=== PATIENT | female | born 1985 | race Two or more races ===

== ENCOUNTER 2019-11-25 09:11 | Emergency (ER) | payer SELFPAY ==
[2019-11-25] MEDS ORDERED: PROMETHAZINE HCL 25 MG TABLET PO ONE (09:34)
[2019-11-25] MEDS ORDERED: ACETAMINOPHEN 325 MG TABLET PO ONE (09:34)
--- NOTE | 2019-11-25 09:34 | ER Document Report ---
ED Medical Screen (RME) - General Chief Complaint: Headache Stated Complaint: RIGHT SIDE FACIAL PAIN,HEAD PAIN Time Seen by Provider: 11/25/19 09:23 Notes: Patient is a 34-year-old female who presents to the emergency department with a chief complaint of right-sided headache. Patient reports that she has trigeminal neuralgia and is currently taking nortriptyline, Lyrica, gabapentin. Patient reports that she does have a neurologist in [place] and just recently moved here. Patient reports she is having breakthrough pain. Patient reports right-sided headache. Patient reports she has having some photosensitivity with nausea. Patient reports she cannot take Compazine or Reglan as this does not work well with her brain. Patient reports she does have chronic pancreatitis and cannot take NSAIDs. Patient requesting Zofran or Phenergan. TRAVEL OUTSIDE OF THE U.S. IN LAST 30 DAYS: No - Related Data Allergies/Adverse Reactions: ketorolac [From Toradol] Allergy (Verified 11/25/19 09:16) NSAIDS (Non-Steroidal Anti-Inflamma Adverse Reaction (Verified 11/25/19 09:16) Home Medications: Lyrica and gabapentin Past Medical History - Social History Frequency of alcohol use: None Drug Abuse: None Physical Exam - Vital signs Vitals: Temp Pulse Resp BP Pulse Ox 97.8 F 113 H 18 152/101 H 100 11/25/19 09:15 11/25/19 09:15 11/25/19 09:15 11/25/19 09:15 11/25/19 09:15 - Respiratory Respiratory status: No respiratory distress Course - Re-evaluation Re-evalutation: 11/25/19 09:34 I have greeted and performed a rapid initial assessment of this patient. A comprehensive ED assessment and evaluation of the patient, analysis of test results and completion of the medical decision making process will be conducted by additional ED providers. We will give the patient antinausea medication as well as Tylenol. Patient ultimately needs to follow-up with a neurologist. - Vital Signs Vital signs: Temp Pulse Resp BP Pulse Ox 97.8 F 113 H 18 152/101 H 100 11/25/19 09:15 11/25/19 09:15 11/25/19 09:15 11/25/19 09:15 11/25/19 09:15
[2019-11-25] MEDS ORDERED: ONDANSETRON 4 MG TAB.RAPDIS PO ONE (10:06)
[2019-11-25] MEDS ORDERED: OXYCODONE-ACETAMINOPHEN 5-325 MG TABLET PO ONE (10:06)
--- NOTE | 2019-11-25 10:31 | ER Document Report ---
ED Headache - General Chief Complaint: Headache Stated Complaint: RIGHT SIDE FACIAL PAIN,HEAD PAIN Time Seen by Provider: 11/25/19 09:23 Mode of Arrival: Ambulatory Information source: Patient Notes: 34-year-old female with history of trigeminal neuralgia who is been following in [place] now lives in [place] but has not yet established with neurology presenting for worsening right facial pain consistent with her prior trigeminal neuralgia diagnosis. Patient states she is on multiple medications for this but they do not seem to be working as well over the last several weeks. She has not called her neurologist in [place] to discuss medication management. Patient presenting for pain management at this time TRAVEL OUTSIDE OF THE U.S. IN LAST 30 DAYS: No - HPI Patient complains to provider of: Facial pain - Trigeminal neuralgia history Onset: Other - Every day Onset was: Other - Chronic Quality of pain: Burning Severity: Moderate Pain Level: 4 Similar symptoms previously: Yes - Miya Recently seen / treated by doctor: Yes - Lynne, neurology in [place] - Related Data Allergies/Adverse Reactions: ketorolac [From Toradol] Allergy (Verified 11/25/19 09:16) NSAIDS (Non-Steroidal Anti-Inflamma Adverse Reaction (Verified 11/25/19 09:16) Home Medications: Lyrica and gabapentin Past Medical History - Social History Smoking Status: Current Every Day Smoker Cigarette use (# per day): Yes Chew tobacco use (# tins/day): No Smoking Education Provided: No Frequency of alcohol use: None Drug Abuse: None Family History: Reviewed & Not Pertinent Patient has suicidal ideation: No Patient has homicidal ideation: No - Medical History Medical History: Other - Trigeminal neuralgia Surgical Hx: Negative - Immunizations Immunizations up to date: Yes Review of Systems - Review of Systems Constitutional: See HPI EENT: Other - Right facial pain Cardiovascular: No symptoms reported Respiratory: No symptoms reported Gastrointestinal: No symptoms reported Female Genitourinary: No symptoms reported Musculoskeletal: No symptoms reported Skin: No symptoms reported Hematologic/Lymphatic: No symptoms reported Neurological/Psychological: No symptoms reported -: Yes All other systems reviewed and negative Physical Exam - Vital signs Vitals: Temp Pulse Resp BP Pulse Ox 97.8 F 113 H 18 152/101 H 100 11/25/19 09:15 11/25/19 09:15 11/25/19 09:15 11/25/19 09:15 11/25/19 09:15 - Notes Notes: MEDICATIONS: I agree with the patient medications as charted by the RN. ALLERGIES: I agree with the allergies as charted by the RN. PAST MEDICAL HISTORY/PAST SURGICAL HISTORY: Reviewed and agree as charted by RN. SOCIAL HISTORY: Reviewed and agree as charted by RN. FAMILY HISTORY: No significant familial comorbid conditions directly related to patient complaint EXAM: Reviewed vital signs as charted by RN. CONSTITUTIONAL: Alert and oriented and responds appropriately to questions. Well-appearing; well-nourished HEAD: Normocephalic; atraumatic EYES: PERRL; Conjunctivae clear, sclerae non-icteric ENT: normal nose; no rhinorrhea; moist mucous membranes. There is tenderness on palpation of the right forehead, cheek and mandible without visible rash NECK: Supple without meningismus; non-tender; no cervical lymphadenopathy, no masses CARD: RRR; no murmurs, no clicks, no rubs, no gallops; symmetric distal pulses RESP: Normal chest excursion without splinting or tachypnea; breath sounds clear and equal bilaterally; no wheezes, no rhonchi, no rales, ABD/GI: Normal bowel sounds; non-distended; soft, non-tender, no rebound, no guarding; no palpable organomegaly or masses. BACK: The back appears normal and is non-tender to palpation, there is no CVA tenderness EXT: Normal ROM in all joints; no cyanosis, no effusions, no edema SKIN: Normal color for age and race; warm; dry; good turgor; no acute lesions noted NEURO: Moves all extremities equally; Motor and sensory function intact PSYCH: The patient's mood and manner are appropriate. Grooming and personal hygiene are appropriate. Course - Re-evaluation Re-evalutation: 11/25/19 10:33 34-year-old female with chronic facial pain on multiple medications. She was reviewed on the [place] narcotics database without finding significant entries for narcotics. Patient is aware that we do not treat chronic pain issues through the emergency department. She will call her neurologist today to discuss further medication changes with her current medication regimen. I will refer the patient to neurology here. I will write the patient a very short course of pain medication today she does not have significant history here of narcotic use but she is aware that she will not receive repeat narcotic pain medications - Vital Signs Vital signs: Temp Pulse Resp BP Pulse Ox 97.8 F 113 H 18 152/101 H 100 11/25/19 09:15 11/25/19 09:15 11/25/19 09:15 11/25/19 09:15 11/25/19 09:15 Discharge - Discharge Clinical Impression: Facial pain syndrome Condition: Good Disposition: HOME, SELF-CARE Additional Instructions: Take the medications as prescribed no driving if taking narcotics for pain. It is important that you obtain primary care or neurology follow-up for further pain management issues as discussed. Call your neurologist in [place] to discuss medication changes with your current regimen. You have been given a referral to neurology for follow-up Prescriptions: Ondansetron [Zofran Odt 4 mg Tablet] 4 mg PO Q4HP PRN #14 tab.rapdis PRN Reason: Oxycodone HCl/Acetaminophen [Percocet 5-325 mg Tablet] 1 tab PO ASDIR PRN #10 tab PRN Reason: Neuropathic Pain Referrals: BEL CARRANZA MD [[facility]] - Follow up as needed
[2019-11-25 10:47] VITALS: BP 140/74
== END 2019-11-25 10:47 | disposition home or self-care (01) ==
LOC: ER 09:11
DX: G50.0 Trigeminal neuralgia (principal); Z79.899 Other long term (current) drug therapy; F17.210 Nicotine dependence, cigarettes, uncomplicated; Z88.8 Allergy status to other drugs, medicaments and biological substances
CPT/HCPCS: 99283; S0119

== ENCOUNTER 2020-01-29 12:12 | Emergency (ER) | payer SELFPAY ==
[2020-01-29] MEDS ORDERED: ONDANSETRON 4 MG TAB.RAPDIS PO ONE (13:51)
[2020-01-29] MEDS ORDERED: ACETAMINOPHEN 325 MG TABLET PO ONE (13:51)
--- NOTE | 2020-01-29 13:51 | ER Document Report ---
ED Medical Screen (RME) - General Chief Complaint: Headache Stated Complaint: HEAD PAIN Time Seen by Provider: 01/29/20 13:44 Mode of Arrival: Ambulatory Information source: Patient Notes: 34-year-old female presents to ED for complaint of a headache x3 days with nausea. She states she took Tylenol at 630. She states she has headaches but never one the last 3 days. She is 16 weeks 4 para 2. She does live in [place] and her [employer] is in [place]. She does have a history of previous pregnancies gestational diabetes gestational hypertension with preeclampsia anxiety and depression. She does not smoke she rarely drinks has not drank in a car least couple months and does not use any drugs. I have greeted and performed a rapid initial assessment of this patient. A comprehensive ED assessment and evaluation of the patient, analysis of test results and completion of medical decision making process will be conducted by an additional ED providers. TRAVEL OUTSIDE OF THE U.S. IN LAST 30 DAYS: No - Related Data Allergies/Adverse Reactions: ketorolac [From Toradol] Allergy (Verified 01/29/20 13:11) NSAIDS (Non-Steroidal Anti-Inflamma Adverse Reaction (Verified 01/29/20 13:11) Past Medical History - Immunizations Immunizations up to date: Yes Physical Exam - Vital signs Vitals: Temp Pulse Resp BP Pulse Ox 98.8 F 87 20 148/86 H 100 01/29/20 12:57 01/29/20 12:57 01/29/20 12:57 01/29/20 12:57 01/29/20 12:57 Course - Vital Signs Vital signs: Temp Pulse Resp BP Pulse Ox 98.8 F 87 20 148/86 H 100 01/29/20 12:57 01/29/20 12:57 01/29/20 12:57 01/29/20 12:57 01/29/20 12:57
--- NOTE | 2020-01-29 14:08 | ER Document Report ---
ED Medical Screen (RME) - General Chief Complaint: Headache Stated Complaint: HEAD PAIN Time Seen by Provider: 01/29/20 13:44 Mode of Arrival: Ambulatory Information source: Patient Notes: 34-year-old female presented to ED for complaint of headache. She has a history of trigeminal neuralgia she was diagnosed in [place] in December 2018. She states she smokes 1/2 pack of cigarettes does not use alcohol or drugs. She also has a story of pancreatitis. She states she has been nauseated for about the last 3 to 4 days and she thinks is because of the pain in her head. She states she has not seen any doctors since March or April when she moved from [place] to [place]. I have greeted and performed a rapid initial assessment of this patient. A comprehensive ED assessment and evaluation of the patient, analysis of test results and completion of medical decision making process will be conducted by an additional ED providers. TRAVEL OUTSIDE OF THE [place] IN LAST 30 DAYS: No - Related Data Allergies/Adverse Reactions: ketorolac [From Toradol] Allergy (Verified 01/29/20 13:11) NSAIDS (Non-Steroidal Anti-Inflamma Adverse Reaction (Verified 01/29/20 13:11) Past Medical History - Immunizations Immunizations up to date: Yes Physical Exam - Vital signs Vitals: Temp Pulse Resp BP Pulse Ox 98.8 F 87 20 148/86 H 100 01/29/20 12:57 01/29/20 12:57 01/29/20 12:57 01/29/20 12:57 01/29/20 12:57 Course - Vital Signs Vital signs: Temp Pulse Resp BP Pulse Ox 98.8 F 87 20 148/86 H 100 01/29/20 12:57 01/29/20 12:57 01/29/20 12:57 01/29/20 12:57 01/29/20 12:57
[2020-01-29 14:45] LABS: ABSOLUTE EOSINOPHILS # (AUTO) 0.6 10^3/uL (0.0-0.6); ABSOLUTE LYMPHOCYTES (AUTO) 1.5 10^3/uL (0.5-4.7); ABSOLUTE MONOCYTES (AUTO) 0.4 10^3/uL (0.1-1.4); ABSOLUTE NEUT (AUTO) 6.3 10^3/uL (1.7-8.2); BASOPHILS % (AUTO) 0.5 % (0-2); EOSINOPHILS % (AUTO) 6.3 % (0-6); HEMATOCRIT 34.1 % (36.0-47.0); HEMOGLOBIN 11.2 g/dL (12.0-15.5); LYMPHOCYTES % (AUTO) 17.1 % (13-45); MEAN CORPUSCULAR HEMOGLOBIN 24.1 pg (27.0-33.4); MEAN CORPUSCULAR HGB CONC 32.8 g/dL (32.0-36.0); MEAN CORPUSCULAR VOLUME 73 fl (80-97); MONOCYTES % (AUTO) 4.5 % (3-13); PLATELET COUNT 200 10^3/uL (150-450); RED BLOOD COUNT 4.65 10^6/uL (3.72-5.28); SEGMENTED NEUTROPHILS % (AUTO) 71.6 % (42-78); TOTAL CELLS COUNTED % (AUTO) 100 %; WHITE BLOOD COUNT 8.8 10^3/uL (4.0-10.5)
[2020-01-29 14:48] LABS: APPEARANCE,URINE CLEAR; BILIRUBIN,URINE NEGATIVE (NEGATIVE); COLOR,URINE STRAW; GLUCOSE, URINE NEGATIVE (NEGATIVE); KETONES,URINE NEGATIVE (NEGATIVE); PROTEIN,URINE NEGATIVE (NEGATIVE); URINE SPECIFIC GRAVITY 1.003; UROBILINOGEN,URINE NEGATIVE mg/dL (<2.0)
[2020-01-29 14:53] LABS: BACTERIA,URINE TRACE /HPF; RBC,URINE 0-1 /HPF
[2020-01-29 15:22] LABS: ALBUMIN 4.7 g/dL (3.5-5.0); ALKALINE PHOSPHATASE 63 U/L (38-126); ANION GAP 10 (5-19); ASPARTATE AMINO TRANSFERASE 19 U/L (14-36); BILIRUBIN,TOTAL 0.4 mg/dL (0.2-1.3); BLOOD UREA NITROGEN < 2 mg/dL (7-20); CALCIUM 9.4 mg/dL (8.4-10.2); CARBON DIOXIDE 27 mmol/L (22-30); CHLORIDE 106 mmol/L (98-107); GLUCOSE 85 mg/dL (75-110); POTASSIUM 3.5 mmol/L (3.6-5.0); TOTAL PROTEIN 7.6 g/dL (6.3-8.2)
[2020-01-29] MEDS ORDERED: DIPHENHYDRAMINE HCL 50 MG/ML VIAL IV ONE (15:46)
[2020-01-29] MEDS ORDERED: DEXAMETHASONE SOD PHOS INJ 10 MG/1 ML VIAL IV ONE (15:46)
[2020-01-29] MEDS ORDERED: MORPHINE SULFATE 10 MG/ML INJ IV ONE ×2 (15:46→17:05)
--- NOTE | 2020-01-29 15:51 | ER Document Report ---
HPI - HPI Time Seen by Provider: 01/29/20 13:44 Pain Level: 4 Notes: Patient is a 34-year-old female with history of right-sided trigeminal neuralgia and currently on Lyrica and gabapentin at home by her neurologist from [place] presents complaining of having continued pain and requesting some medicines to help. This is not the worst headache of her life and did not start as a thunderclap. She has this pain routinely. Patient states that she tries not to come here for this type of pain. She recently moved to the area and is working on getting Medicaid. She is able to eat and drink without difficulty. She does have chronic pancreatitis issues as well. She is urinating normally and having normal bowel movements. Patient states that she cannot have any anti- inflammatories and she cannot have any Reglan, Phenergan, or Compazine as it makes her suicidal. Denies any headache, fever, neck pain, changes in vision/speech/mentation/hearing, URI, sore throat, chest pain, palpitations, syncope, cough, shortness of breath, wheeze, dyspnea, abdominal pain, nausea/vomiting/diarrhea, urinary retention, dysuria, hematuria, or rash. - ROS Systems Reviewed and Negative: Yes All other systems reviewed and negative - REPRODUCTIVE LMP: unk, after 01/03/ Reproductive: DENIES: : Past Medical History - General Information source: Patient - Social History Smoking Status: Current Every Day Smoker Chew tobacco use (# tins/day): No Frequency of alcohol use: None Drug Abuse: None Family History: Reviewed & Not Pertinent Patient has suicidal ideation: No Patient has homicidal ideation: No - Immunizations Immunizations up to date: Yes Vertical Provider Document - CONSTITUTIONAL Agree With Documented VS: Yes Notes: PHYSICAL EXAMINATION: GENERAL: Well-appearing, well-nourished and in no acute distress. A&Ox4. Answers questions appropriately. HEAD: Atraumatic, normocephalic. Non-tender. EYES: Pupils equal round and reactive to light, extraocular movements intact, sclera anicteric, conjunctiva are normal. No nystagmus. vis martinez intact. ENT: Nares patent and without discharge. oropharynx clear without exudates. No tonsilar hypertrophy or erythema. Moist mucous membranes. Face: + sensitivity rt side of face. No swelling. NECK: Normal range of motion, supple without lymphadenopathy. No rigidity/meningismus. No midline tenderness. LUNGS: Breath sounds clear to auscultation bilaterally and equal. No wheezes rales or rhonchi. HEART: Regular rate and rhythm without murmurs, rubs, gallops. ABDOMEN: Soft, nontender, nondistended abdomen. No guarding, no rebound. Normal bowel sounds present. No CVA tenderness bilaterally. Musculoskeletal: Ext b/l: FROM to passive/active. Strength 5+/5. No deficits noted. No bony tenderness of extremities. Extremities: No cyanosis, clubbing, or edema b/l. Peripheral pulses 2+. Capil kj refill less than 2 seconds. NEUROLOGICAL: NIH 0. GCS 15. Cranial nerves grossly intact. Normal speech, normal gait. Normal sensory, motor exams. PSYCH: Normal mood, normal affect. SKIN: Warm, Dry, normal turgor, no rashes or lesions noted. - INFECTION CONTROL TRAVEL OUTSIDE OF THE [place] IN LAST 30 DAYS: No Course - Re-evaluation Re-evalutation: 01/29/20 Patient is an afebrile, well-hydrated, 34-year-old female who presents to the ED with acute/chronic trigeminal neuralgia pain. Vitals are acceptable without any significant tachycardia, tachypnea, or hypoxia. PE is otherwise unremarkable for any focal neurological deficits. NIH 0, GCS 15, cranial nerves grossly intact. Patient has had headaches like this in the past recently. Labs unremarkable. Patient is very particular with what medicine she was given. I thoroughly reviewed with the patient that the ED does not treat chronic pain and that I personally would help her once this time, but not to expect any further narcotics for me in the future as she needs to establish with a neurologist and/or pain management. Patient does have a ride home. She is nontoxic- appearing and is tolerating p.o. without any difficulties. No further work-up warranted. Low suspicion for any acute glaucoma, temporal arteritis, meningitis, intracranial hemorrhage, ischemic stroke, or fracture at this time. Patient is aware that this condition can change from initial presentation and that she needs to monitor symptoms closely for any acute changes. Recheck with your PCM/neurologist/pain management in 3-5 days. Return to the ED with any worsening/concerning symptoms otherwise as reviewed in discharge. Patient is in agreement. - Vital Signs Vital signs: Temp Pulse Resp BP Pulse Ox 98.8 F 87 20 148/86 H 100 01/29/20 12:57 01/29/20 12:57 01/29/20 12:57 01/29/20 12:57 01/29/20 12:57 - Laboratory Result Diagrams: 01/29/20 14:30 01/29/20 14:30 Laboratory results interpreted by me: 01/29/20 01/29/20 01/29/20 14:30 14:30 14:30 Hgb 11.2 L Hct 34.1 L MCV 73 L MCH 24.1 L RDW 19.0 H Eos % (Auto) 6.3 H Potassium 3.5 L BUN < 2 L Urine Blood SMALL H Discharge - Discharge Clinical Impression: Trigeminal neuralgia of right side of face Condition: Stable Disposition: HOME, SELF-CARE Instructions: Headache ([facility]) Additional Instructions: Rest, Ice/cool compress Tylenol/ibuprofen as needed Light stretches daily Strength exercises as able Moist heat and massage may help F/u with your PCP in 3-5 days for a recheck schedule appointment with neurology/pain management Return to the ED with any worsening symptoms and/or development of fever, headache, changes in behavior/mentation/vision/speech, chest pain, palpitations, syncope, shortness of breath, trouble breathing, abdominal pain, n/v/d, blood in stool/urine, loss of control of bowel/bladder, urinary retention, muscle weakness/paralysis, saddle anesthesia, numbness/tingling, or other worsening symptoms that are concerning to you. Forms: Elevated Blood Pressure Referrals: BENSON PEARSON MD [NO LOCAL MD] - Follow up as needed [facility] [Provider Group] - Follow up as needed
[2020-01-29] MEDS ORDERED: HYDROCODONE/ACETAMINOPHEN 5-325 MG (6 TAB/ER DISP) PO PRN (15:52)
[2020-01-29] MEDS ORDERED: ONDANSETRON HCL INJ/PF 4 MG/2 ML SDV IV ONE (17:05)
[2020-01-29 17:59] VITALS: BP 134/85
== END 2020-01-29 17:59 | disposition home or self-care (01) ==
LOC: ER 12:12
DX: O26.92 Pregnancy related conditions, unspecified, second trimester (principal); G50.0 Trigeminal neuralgia; R11.0 Nausea; O99.332 Smoking (tobacco) complicating pregnancy, second trimester; Z3A.16 16 weeks gestation of pregnancy
CPT/HCPCS: 96376; 99283; 96374; 96375; 36415; 85025; 80053; 81001; J1200; S0119; J2270; J2405; J1100

== ENCOUNTER 2020-05-29 07:19 | Emergency (ER) | payer SELFPAY ==
[2020-05-29 07:28] VITALS: BP 146/74
--- NOTE | 2020-05-29 10:27 | ER Document Report ---
ED Medical Screen (RME) - General Chief Complaint: Skin Sore(s) Stated Complaint: RASH/SKIN SORES Time Seen by Provider: 05/29/20 10:23 Mode of Arrival: Ambulatory Information source: Patient Notes: This 35-year-old female who is 7 weeks who originally comes to the emergency room today stating that she has been exposed to MRSA and she has some lesions to the medial aspect of her thigh and in her left lower extremity. She also states she has frequency urgency burning pain to the right lower abdomen which radiates around from the flank she does state that she has had a confirmed test and ultrasound but I do not have access to the report. TRAVEL OUTSIDE OF THE [place] IN LAST 30 DAYS: No - Related Data Allergies/Adverse Reactions: ketorolac [From Toradol] Allergy (Verified 01/29/20 13:11) NSAIDS (Non-Steroidal Anti-Inflamma Adverse Reaction (Verified 01/29/20 13:11) Past Medical History - Immunizations Immunizations up to date: Yes Physical Exam - Vital signs Vitals: Temp Pulse Resp BP Pulse Ox 98.4 F 97 20 146/74 H 97 05/29/20 07:25 05/29/20 07:25 05/29/20 07:25 05/29/20 07:25 05/29/20 07:25 - Abdominal Notes: Patient has discomfort to light right lower quadrant and groin area she is sitting up and lying down thus negating the validity of the examination further exam will be performed in the back. Course - Vital Signs Vital signs: Temp Pulse Resp BP Pulse Ox 98.4 F 97 20 146/74 H 97 05/29/20 07:25 05/29/20 07:25 05/29/20 07:25 05/29/20 07:25 05/29/20 07:25
[2020-05-29] MEDS ORDERED: METOCLOPRAMIDE HCL 10 MG TABLET PO ONE (10:28)
[2020-05-29 11:14] LABS: ABSOLUTE EOSINOPHILS # (AUTO) 0.4 10^3/uL (0.0-0.6); ABSOLUTE LYMPHOCYTES (AUTO) 2.3 10^3/uL (0.5-4.7); ABSOLUTE MONOCYTES (AUTO) 0.5 10^3/uL (0.1-1.4); ABSOLUTE NEUT (AUTO) 8.8 10^3/uL (1.7-8.2); BASOPHILS % (AUTO) 0.2 % (0-2); EOSINOPHILS % (AUTO) 3.5 % (0-6); HEMATOCRIT 37.8 % (36.0-47.0); HEMOGLOBIN 12.7 g/dL (12.0-15.5); LYMPHOCYTES % (AUTO) 19.1 % (13-45); MEAN CORPUSCULAR HEMOGLOBIN 26.9 pg (27.0-33.4); MEAN CORPUSCULAR HGB CONC 33.7 g/dL (32.0-36.0); MEAN CORPUSCULAR VOLUME 80 fl (80-97); MONOCYTES % (AUTO) 3.8 % (3-13); PLATELET COUNT 162 10^3/uL (150-450); RED BLOOD COUNT 4.74 10^6/uL (3.72-5.28); RED CELL DISTRIBUTION WIDTH 16.4 % (11.5-14.0); SEGMENTED NEUTROPHILS % (AUTO) 73.4 % (42-78); TOTAL CELLS COUNTED % (AUTO) 100 %; WHITE BLOOD COUNT 11.9 10^3/uL (4.0-10.5)
[2020-05-29 11:31] LABS: APPEARANCE,URINE CLEAR; BILIRUBIN,URINE NEGATIVE (NEGATIVE); COLOR,URINE YELLOW; GLUCOSE, URINE NEGATIVE (NEGATIVE); KETONES,URINE NEGATIVE (NEGATIVE); LEUKOCYTE ESTERASE,URINE NEGATIVE (NEGATIVE); NITRITE,URINE NEGATIVE (NEGATIVE); PROTEIN,URINE NEGATIVE (NEGATIVE); URINE SPECIFIC GRAVITY 1.008; UROBILINOGEN,URINE NEGATIVE mg/dL (<2.0)
--- NOTE | 2020-05-29 11:36 | ER Document Report ---
ED General - General Chief Complaint: Skin Problem Stated Complaint: RASH/SKIN SORES Time Seen by Provider: 05/29/20 10:23 Mode of Arrival: Ambulatory Notes: 35-year-old woman presents to the emergency department with a complaint of pain in the right inguinal area with irritation and discomfort. She also notes lesions on the lateral aspect of the underside of the fat pad on the abdominal wall area. Patient is 7 weeks intrauterine has had no associated bleeding. She denies associated cramping and no vomiting. She presents mainly for evaluation of the rash and treatment. She denies allergies to antibiotics. Patient also has stated that she has a need for RhoGam. She denies bleeding, and is very early in . TRAVEL OUTSIDE OF THE [place] IN LAST 30 DAYS: No - Related Data Allergies/Adverse Reactions: ketorolac [From Toradol] Allergy (Verified 01/29/20 13:11) NSAIDS (Non-Steroidal Anti-Inflamma Adverse Reaction (Verified 01/29/20 13:11) Past Medical History - General Information source: Patient - Social History Smoking Status: Current Every Day Smoker Frequency of alcohol use: None Drug Abuse: None Family History: Reviewed & Not Pertinent Patient has homicidal ideation: No - Immunizations Immunizations up to date: Yes Review of Systems - Review of Systems Notes: Constitutional: Negative for fever. HENT: Negative for sore throat. Eyes: Negative for visual changes. Cardiovascular: Negative for chest pain. Respiratory: Negative for shortness of breath. Gastrointestinal: Negative for abdominal pain, vomiting or diarrhea. Genitourinary: Negative for dysuria. Musculoskeletal: Negative for back pain. Skin: + Inguinal rash with mild swelling. Neurological: Negative for headaches, weakness or numbness. 10 point ROS negative except as marked above and in HPI. Physical Exam - Vital signs Vitals: Temp Pulse Resp BP Pulse Ox 98.4 F 97 20 146/74 H 97 05/29/20 07:25 05/29/20 07:25 05/29/20 07:25 05/29/20 07:25 05/29/20 07:25 - Notes Notes: PHYSICAL EXAMINATION: Physical Exam: General: Well-nourished well-developed 35-year-old woman in no acute distress HEENT: NC/AT, pupils equal round and reactive to light, MM moist,nares clear, oropharynx clear, airway patent Neck: supple, no adenopathy, no masses. Good range of motion Lungs: clear, no wheezing, no rales no rhonchi CVS: Regular rate and rhythm no murmur gallop or rub Abdomen: Soft, active, nontender, no masses, no hepatosplenomegaly Ext: Firm left medial thigh skin lesion, approximately 2 x 2 cm nonfluctuant, no cellulitis. Neuro: Alert and responsive, moving all 4 extremities on command, cranial nerves intact, no focal findings Skin: Macular skin lesions in the adipose tissue of the abdominal wall right side in the skin fold. PSYCH: Normal mood, normal affect. Course - Re-evaluation Re-evalutation: 05/29/20 13:38 The patient is very upset and demanding that she get something for pain. I have offered Tylenol given her 7-week intrauterine . Patient states that Tylenol does nothing for her. I told her that I am not comfortable given stronger medications and this early . Ultrasound was performed no pathology identified, urinalysis, CBC and labs were also reviewed with the patient. She was treated with antibiotics for skin lesions, review of antibiotics doxycycline (can be given safely in the first trimester ) which covers MRSA was given . Zofran was also sent to the pharmacy and I have explained to the patient using a cold compress and Tylenol may be comforting. There was also the request for RhoGam, presently the patient is not bleeding and at 7 weeks, I have explained that she could follow-up with her outpatient [facility] care at the health department. If she needs RhoGam, her health providers could initiate the process. Patient and her significant other states that they just want the discharge papers and to be discharged. I did ask the patient regarding her expectations of the ER visit. She states that she had pain management during her first 2 pregnancies in [place]. I explained to the patient that we cannot manage this pain in the emergency department. - Vital Signs Vital signs: Temp Pulse Resp BP Pulse Ox 98.4 F 97 20 146/74 H 97 05/29/20 10:47 05/29/20 07:25 05/29/20 07:25 05/29/20 07:25 05/29/20 07:25 - Laboratory Result Diagrams: 05/29/20 11:02 05/29/20 11:02 Laboratory results interpreted by me: 05/29/20 05/29/20 05/29/20 11:02 11:02 11:02 WBC 11.9 H MCH 26.9 L RDW 16.4 H Absolute Neuts (auto) 8.8 H Sodium 136.7 L Potassium 3.1 L BUN 4 L Glucose 115 H Urine HCG, Qual POSITIVE H - Diagnostic Test Radiology reviewed: Image reviewed, Reports reviewed - OB ultrasound: Intrauterine 7 weeks 4 days, heart beat 147, Discharge - Discharge Clinical Impression: Skin infection, First trimester , Hypokalemia, Nausea, Panniculitis Condition: Good Disposition: HOME, SELF-CARE Instructions: ([facility]) Additional Instructions: You were seen in the emergency department with a diagnosis skin infection/panniculitis, first trimester and nausea. Given discharged home with a prescription for doxycycline and Zofran for nausea. You may use a warm compress on the area of pain involving the left thigh. Please take medications as prescribed. Follow-up with your health department/[facility] problem as needed. HOME CARE INSTRUCTIONS & INFORMATION: Thank you for choosing us for your medical needs. We hope you're satisfied with the care you received. After you leave, you must properly care for your problem and, at the same time, observe its progress. Any condition can change. Some illnesses can change rapidly over hours or days. If your condition worsens, return to the Emergency Department or see your physician promptly. ABOUT YOUR X-RAYS AND EKG'S: If you had an EKG or X-rays taken, they have been read by the Emergency Physician. The X-rays and EKG's will also be read by a Radiologist or Hyperbaric Technician within 24 hours. If discrepancies are noted, you will be notified by telephone. Please be certain the ED has a correct telephone number & address where you can be reached. Also, realize that some fractures or abnormalities do not show up on initial X-rays. If your symptoms continue, see your physician. ABOUT YOUR LABORATORY TEST: If you had laboratory tests, the results have been reviewed by the Emergency Physician. Some test results (for example cultures) may not be available for several days. You will be contacted if any test result shows you need additional treatment. Please be certain the ED has a correct telephone number and address where you can be reached. ABOUT YOUR MEDICATIONS: You will receive instructions on how to take your medicine on the prescription label you receive. Additional information may be provided by the Pharmacy. If you have questions afterwards, call the ED for clarification or further instructions. Some prescribed medications may cause drowsiness. Do not perform tasks such as driving a car or operating machinery without consulting your Pharmacist. If you feel you need a refill of pain medication, your condition will need re-evaluation. Please do not call for a refill of any medication. ABOUT YOUR SIGNATURE: Signature of this document acknowledges to followin. Understanding that you received emergency treatment and that you may be released before al medical problems are known or treated. Please be certain the ED has a correct phone number & address where you can be reached. 2. Acknowledgement that you will arrange for follow-up care as recommended. 3. Authorization for the Emergency Physician to provide information to your follow-up Physician in order to maximize your care. AT ANY TIME, IF YOUR SYMPTOMS CHANGE SIGNIFICANTLY OR WORSEN OR YOU DEVELOP NEW SYMPTOMS, RETURN TO THE EMERGENCY DEPARTMENT IMMEDIATELY FOR RE-EVALUATION. OUR GOAL IS TO PROVIDE EXCELLENT MEDICAL CARE! WE HOPE THAT WE HAVE MET YOUR EXPECTATIONS DURING YOUR EMERGENCY DEPARTMENT VISIT AND THAT YOU FEEL YOU HAVE RECEIVED EXCELLENT CARE! Prescriptions: Doxycycline Hyclate [Vibramycin 100 mg Tablet] 100 mg PO BID #20 tablet Ondansetron [Zofran Odt 4 mg Tablet] 1 - 2 tab PO Q4H PRN #15 tab.rapdis PRN Reason: For Nausea/Vomiting
[2020-05-29 11:39] LABS: ALKALINE PHOSPHATASE 40 U/L (38-126); ANION GAP 9 (5-19); ASPARTATE AMINO TRANSFERASE 16 U/L (14-36); BILIRUBIN,TOTAL 0.4 mg/dL (0.2-1.3); BLOOD UREA NITROGEN 4 mg/dL (7-20); CALCIUM 8.9 mg/dL (8.4-10.2); CARBON DIOXIDE 23 mmol/L (22-30); CHLORIDE 105 mmol/L (98-107); GLUCOSE 115 mg/dL (75-110); POTASSIUM 3.1 mmol/L (3.6-5.0); TOTAL PROTEIN 6.7 g/dL (6.3-8.2)
--- NOTE | 2020-05-29 12:26 | RADIOLOGY REPORT (SQ) ---
EXAM DESCRIPTION: U/S OB TRANSVAGINAL W/O DOP IMAGES COMPLETED DATE/TIME: 05/29/2020 11:58 am REASON FOR STUDY: pain COMPARISON: None. TECHNIQUE: Transvaginal static and realtime grayscale images acquired of the pelvis. Additional karena cted spectral and color Doppler images recorded. All images stored on PACs. bHCG: Not available. CLINICAL DATES: 7 weeks, 4 days LIMITATIONS: None. FINDINGS: FETUS: Single Living intrauterine . ULTRASOUND EGA: 7 weeks, 3 days ULTRASOUND ABRAHAN: 01/12/2021 EFW: Not applicable less than 20 weeks. CRL: 13 mm FHR: 147 beats per minute. SURVEY: Choose 2 AMNIOTIC FLUID: Adequate amount. PLACENTA: Not yet developed due to early gestation. SUBCHORIONIC BLEED: No. SIZE OF BLEED: Not applicable. UTERUS: No masses. No anomalies. CERVICAL LENGTH: 3.9 cm Closed. RIGHT ADNEXA: Normal ovary with normal vascular flow. No adnexal free fluid. No adnexal masses. LEFT ADNEXA: Ovary not identified due to poor acoustical window. No adnexal free fluid. No adnexal masses. FREE FLUID: None. OTHER: No other significant finding. IMPRESSION: LIVING INTRAUTERINE . EGA 7 weeks, 3 days Trimester of : First trimester - 0 to 13 weeks. TECHNICAL DOCUMENTATION: JOB ID: [id number] 2010 [employer]- All Rights Reserved rev Reading location - IP/workstation name: [email or web address]
[2020-05-29] MEDS ORDERED: DOXYCYCLINE HYCLATE 100 MG TABLET PO ONE (13:07)
[2020-05-29] MEDS ORDERED: ONDANSETRON HCL INJ/PF 4 MG/2 ML SDV IV ONE (13:07)
[2020-05-29] MEDS ORDERED: ACETAMINOPHEN 325 MG TABLET PO ONE (13:08)
== END 2020-05-29 13:20 | disposition home or self-care (01) ==
LOC: ER 07:19
DX: O26.891 Other specified pregnancy related conditions, first trimester (principal); E87.6 Hypokalemia; M79.3 Panniculitis, unspecified; R11.0 Nausea; O99.331 Smoking (tobacco) complicating pregnancy, first trimester; F17.200 Nicotine dependence, unspecified, uncomplicated; Z3A.01 Less than 8 weeks gestation of pregnancy
CPT/HCPCS: 36415; 76817; 80053; 81001; 81025; 83690; 85025; 99283

== ENCOUNTER 2020-05-31 00:23 | Emergency (ER) | payer SELFPAY ==
[2020-05-31] MEDS ORDERED: NORMAL SALINE 1000 ML 1,000 ML IV ONE (00:44)
--- NOTE | 2020-05-31 00:44 | ER Document Report ---
ED Medical Screen (RME) - General Chief Complaint: Abdominal Pain Stated Complaint: VOMITING,VAGINAL SPOTTING-7 WEEKS PREG Notes: Patient is a 35-year-old female who is currently 7 weeks gestation who was seen here last night for pelvic pain with returns today with a worsening right pelvic pain. She states that she has a history of chronic pancreatitis. Admits to some associated nausea and vomiting. States she was told yesterday she was hypokalemic. She is concerned because she began bleeding last night, spotting and states that she is Rh- and knows that she needs a RhoGam shot. She states she was told in the past that she is high risk and would require additional care with future pregnancies. She was given antibiotics yesterday for suspected area of MRSA over the left thigh and nausea meds. She has an upcoming appointment with a health department for continued care. I have treated and performed a rapid initial assessment of this patient. A comprehensive ED assessment and evaluation of the patient, analysis of test results and completion of medical decision making process will be conducted by additional ED providers. PHYSICAL EXAMINATION: GENERAL: Well-appearing, well-nourished and in no acute distress. A&Ox4. Answers questions appropriately. TRAVEL OUTSIDE OF THE [place] IN LAST 30 DAYS: No - Related Data Allergies/Adverse Reactions: ketorolac [From Toradol] Allergy (Verified 01/29/20 13:11) NSAIDS (Non-Steroidal Anti-Inflamma Adverse Reaction (Verified 01/29/20 13:11) Past Medical History - Social History Chew tobacco use (# tins/day): No Frequency of alcohol use: None Drug Abuse: None - Immunizations Immunizations up to date: Yes Physical Exam - Vital signs Vitals: Temp Pulse Resp BP Pulse Ox 98.7 F 106 H 18 150/85 H 97 05/31/20 00:29 05/31/20 00:29 05/31/20 00:29 05/31/20 00:29 05/31/20 00:29 Course - Vital Signs Vital signs: Temp Pulse Resp BP Pulse Ox 98.7 F 106 H 18 150/85 H 97 05/31/20 00:29 05/31/20 00:29 05/31/20 00:29 05/31/20 00:29 05/31/20 00:29
[2020-05-31 01:06] LABS: ABSOLUTE EOSINOPHILS # (AUTO) 0.4 10^3/uL (0.0-0.6); ABSOLUTE LYMPHOCYTES (AUTO) 2.4 10^3/uL (0.5-4.7); ABSOLUTE MONOCYTES (AUTO) 0.6 10^3/uL (0.1-1.4); ABSOLUTE NEUT (AUTO) 10.9 10^3/uL (1.7-8.2); BASOPHILS % (AUTO) 0.2 % (0-2); EOSINOPHILS % (AUTO) 2.5 % (0-6); HEMOGLOBIN 12.6 g/dL (12.0-15.5); LYMPHOCYTES % (AUTO) 16.6 % (13-45); MEAN CORPUSCULAR HEMOGLOBIN 26.6 pg (27.0-33.4); MEAN CORPUSCULAR HGB CONC 34.1 g/dL (32.0-36.0); MEAN CORPUSCULAR VOLUME 78 fl (80-97); MONOCYTES % (AUTO) 4.1 % (3-13); PLATELET COUNT 165 10^3/uL (150-450); RED BLOOD COUNT 4.74 10^6/uL (3.72-5.28); RED CELL DISTRIBUTION WIDTH 16.3 % (11.5-14.0); SEGMENTED NEUTROPHILS % (AUTO) 76.6 % (42-78); TOTAL CELLS COUNTED % (AUTO) 100 %; WHITE BLOOD COUNT 14.3 10^3/uL (4.0-10.5)
[2020-05-31 01:28] LABS: ALBUMIN 4.2 g/dL (3.5-5.0); ALKALINE PHOSPHATASE 40 U/L (38-126); ANION GAP 9 (5-19); ASPARTATE AMINO TRANSFERASE 17 U/L (14-36); BILIRUBIN,TOTAL 0.4 mg/dL (0.2-1.3); BLOOD UREA NITROGEN 6 mg/dL (7-20); CALCIUM 9.6 mg/dL (8.4-10.2); CARBON DIOXIDE 24 mmol/L (22-30); CHLORIDE 104 mmol/L (98-107); GLUCOSE 102 mg/dL (75-110); POTASSIUM 3.5 mmol/L (3.6-5.0); TOTAL PROTEIN 7.1 g/dL (6.3-8.2)
[2020-05-31 01:33] LABS: APPEARANCE,URINE CLEAR; BILIRUBIN,URINE NEGATIVE (NEGATIVE); COLOR,URINE STRAW; GLUCOSE, URINE NEGATIVE (NEGATIVE); KETONES,URINE NEGATIVE (NEGATIVE); PROTEIN,URINE NEGATIVE (NEGATIVE); URINE SPECIFIC GRAVITY 1.005; UROBILINOGEN,URINE NEGATIVE mg/dL (<2.0)
[2020-05-31] MEDS ORDERED: DIPHENHYDRAMINE HCL 50 MG/ML VIAL IV ONE (02:04)
[2020-05-31] MEDS ORDERED: ONDANSETRON HCL INJ/PF 4 MG/2 ML SDV IV ONE (02:04)
--- NOTE | 2020-05-31 02:10 | RADIOLOGY REPORT (SQ) ---
EXAM DESCRIPTION: US TRANSVAGINAL COMPLETED DATE/TME: 05/31/2020 00:41 CLINICAL HISTORY: 35 years, Female, R pelvic pain, preg COMPARISON: 05/29/2020 ultrasound TECHNIQUE: Emergent first trimester ultrasound LIMITATIONS: None. FINDINGS: The uterus measures 11.0 x 8.4 x 8.4 cm. There is a single, live intrauterine gestation, however the gestational sac is low in position, in the region of the lower endometrial canal possibly partially within the lower uterine segment. heart tones obtained at 169 bpm. Current ultrasound age is 7 weeks 5 days. The right ovary measures 4.0 x 1.8 x 3.3 cm, the left 3.0 x 1.8 x 1.2 cm. Probable corpus luteal cyst of the right ovary measuring 2.8 x 2.2 cm. There is a 2.2 x 1.4 x 1.5 cm vague hypoechoic area adjacent to the gestational sac which could reflect small subchorionic hemorrhage. Small amount of free fluid. Tubular structure in the right adnexa could reflect dilated fallopian tube/hydrosalpinx. IMPRESSION: Single, live intrauterine gestation, however the gestational sac is in an abnormally low position within the endometrial canal, as above. Small subchorionic hemorrhage present. Close obstetric follow-up recommended. Consider short-term follow-up ultrasound. Ultrasound age is 7 weeks 5 days. Tubular structure in the right adnexa could reflect dilated fallopian tube/hydrosalpinx. Probable corpus luteal cyst of the right ovary. Small amount of free fluid copyright 2010 [employer]- All Rights Reserved
--- NOTE | 2020-05-31 02:25 | ER Document Report ---
ED General - General Chief Complaint: Abdominal Pain Stated Complaint: VOMITING,VAGINAL SPOTTING-7 WEEKS PREG Time Seen by Provider: 05/31/20 01:57 Primary Care Provider: NAYA NGUYEN MD [ACTIVE PROVISIONAL STAFF] - 06/02/20 Notes: Patient is a 35 year old female that comes to the Emergency Department for chief complaint of vaginal bleeding and lower abdominal cramping and pain. She states that she actually started having vaginal bleeding intermittently after she was evaluated about a day ago. She states she was diagnosed with panniculitis, she was prescribed doxycycline and Zofran, she states that she was unable to fill either medication because of her finances currently. She states that she continues to have frequent vomiting in . She denies fever. She also states that she is G4, P2 at around 7 weeks gestation, she states her blood type is Rh- and she knows she needs RhoGam shot. TRAVEL OUTSIDE OF THE [place] IN LAST 30 DAYS: No - Related Data Allergies/Adverse Reactions: ketorolac [From Toradol] Allergy (Verified 01/29/20 13:11) NSAIDS (Non-Steroidal Anti-Inflamma Adverse Reaction (Verified 01/29/20 13:11) Past Medical History - General Information source: Patient - Social History Smoking Status: Current Every Day Smoker Chew tobacco use (# tins/day): No Frequency of alcohol use: None Drug Abuse: None Lives with: Family Family History: Reviewed & Not Pertinent Patient has homicidal ideation: No - Immunizations Immunizations up to date: Yes Physical Exam - Vital signs Vitals: Temp Pulse Resp BP Pulse Ox 98.7 F 106 H 18 150/85 H 97 05/31/20 00:29 05/31/20 00:29 05/31/20 00:29 05/31/20 00:29 05/31/20 00:29 - Notes Notes: GENERAL: Alert, interacts well. No acute distress. HEAD: Normocephalic, atraumatic. EYES: Pupils equal, round, and reactive to light. Extraocular movements intact. ENT: Oral mucosa moist, tongue midline. Oropharynx unremarkable. Airway patent. NECK: Full range of motion. Supple. Trachea midline. No lymphadenopathy. LUNGS: Clear to auscultation bilaterally, no wheezes, rales, or rhonchi. No respiratory distress. Non-tender chest wall. HEART: Regular rate and rhythm. No murmur ABDOMEN: Slightly distended abdomen, exam is slightly limited from what appears to be obesity. There is some mild generalized tenderness, there is worse tenderness in the right lower pelvic area slightly under the pannus. There is no overt McBurney's point tenderness. No severe tenderness or guarding. GENITOURINARY: Deferred EXTREMITIES: Moves all 4 extremities spontaneously. No edema, normal radial and dorsalis pedis pulses bilaterally. No cyanosis. BACK: no cervical, thoracic, lumbar midline tenderness. No saddle anesthesia, normal distal neurovascular exam. Moves all extremities in full range of motion. NEUROLOGICAL: Alert and oriented x3. Normal speech. Cranial nerves II through XII grossly intact. Strength 5/5 in all extremities. PSYCH: Normal affect, normal mood. SKIN: There are areas that appear to be mildly erythematous papules suggesting folliculitis especially in the pannus area but these are mild. There is also an area in the right mid thigh which is similar in appearance although there is no overt induration, fluctuance, or significant erythema. Unremarkable otherwise. Course - Re-evaluation Re-evalutation: CBC shows leukocytosis at 14,000 with elevation of neutrophils, slightly higher than yesterday. Chemistry nonspecific, hCG is elevated at 25,000, urinalysis unremarkable and does not show elevated specific gravity. RhoGam is indicated and was provided. Patient felt much better with resolution of symptoms after Benadryl and Zofran along with IV fluids, she is tolerating p.o. with now without any difficulty. She reports she feels much better. Ultrasound showing intrauterine at 7 weeks but this is low in the , patient has a subchorionic hemorrhage. In addition to this there is appearance of hydrosalpinx in the right fallopian tube which is the location of patient's pain. Patient does not have a fever, she denies vaginal discharge. I discussed with Dr. Tipton, I am slightly concerned about performing a pelvic exam given the ultrasound results with the , he recommends LABOR CREW SUPERVISOR consult first. 05/31/20 03:[address] Nguyen, LABOR CREW SUPERVISOR on-call, discussed details and evaluation from today and previous visit. She states she does not recommend a pelvic exam based on her ultrasound, she does recommend prophylactic antibiotics for potential pelvic infection based on right hydrosalpinx and leukocytosis along with pat ient's pain. She states that patient can be seen in the office in 48 hours for recheck of hCG and additional LABOR CREW SUPERVISOR management. Patient can be discharged with return precautions. Patient given Rocephin and azithromycin, she was also given Zofran from here, she states she did not have the money at the moment to fill her other medications but she will soon, therefore she was provided coverage gideon t will bridge her for now. Patient states appreciation and agreement with plan. Patient stable and well-appearing at time of discharge with no current complaints. - Vital Signs Vital signs: Temp Pulse Resp BP Pulse Ox 97.9 F 82 16 124/65 99 05/31/20 03:49 05/31/20 03:49 05/31/20 03:49 05/31/20 03:49 05/31/20 03:49 - Laboratory Result Diagrams: 05/31/20 00:39 05/31/20 00:41 Laboratory results interpreted by me: 05/31/20 05/31/20 00:39 00:41 WBC 14.3 H MCV 78 L MCH 26.6 L RDW 16.3 H Absolute Neuts (auto) 10.9 H Sodium 136.9 L Potassium 3.5 L BUN 6 L Creatinine 0.50 L Beta HCG, Quant 74381.00 H Discharge - Discharge Clinical Impression: Lower abdominal pain, Vaginal bleeding affecting early Condition: Stable Disposition: HOME, SELF-CARE Additional Instructions: Your is sitting low in the uterus and there is a subchorionic hemorrhage as we discussed. There is a possibility this will continue normally, there is also possibility that this will proceed to miscarriage. I recommend pelvic rest (no significant physical activity, sexual intercourse, etc. until cleared by LABOR CREW SUPERVISOR). In addition there is fluid in your right fallopian tube, this could be an infection, you were treated for this tonight. I spoke with Dr. Nguyen, LABOR CREW SUPERVISOR on-call, please see her Monday in the office, see the listed referral. Return for any concerning symptoms including severe worsening pain, uncontrolled vomiting, spiking fever, heavy bleeding with dizziness or passing out, or any other concerning or worsening symptoms. Referrals: NAYA NGUYEN MD [ACTIVE PROVISIONAL STAFF] - 06/02/20
[2020-05-31] MEDS ORDERED: CEFTRIAXONE 1 GM/D5W RTU 1 GM/50 ML RTUPB IV ONE (03:34)
[2020-05-31] MEDS ORDERED: AZITHROMYCIN 250 MG TABLET PO ONE (03:34)
[2020-05-31] MEDS ORDERED: ONDANSETRON ODT 4 MG TAB (6 TAB/ER DISP) PO PRN (03:35)
[2020-05-31 03:50] VITALS: BP 124/65
== END 2020-05-31 04:06 | disposition home or self-care (01) ==
LOC: ER 00:23
DX: O26.891 Other specified pregnancy related conditions, first trimester (principal); R10.30 Lower abdominal pain, unspecified; O46.91 Antepartum hemorrhage, unspecified, first trimester; O21.9 Vomiting of pregnancy, unspecified; O99.331 Smoking (tobacco) complicating pregnancy, first trimester; Z3A.01 Less than 8 weeks gestation of pregnancy; Z88.8 Allergy status to other drugs, medicaments and biological substances; D72.829 Elevated white blood cell count, unspecified
CPT/HCPCS: 99284; 96372; 96361; 96375; 96365; 86900; 86901; 36415; 86850; 84702; 83690; 85025; 80053; 81001; 76817; 93976; J2790; J1200; J2405; J7030; J0696

== ENCOUNTER 2020-06-02 13:50 | Emergency (ER) | payer SELFPAY ==
[2020-06-02] MEDS ORDERED: ONDANSETRON HCL INJ/PF 4 MG/2 ML SDV IV ONE ×2 (15:03→19:35)
--- NOTE | 2020-06-02 15:03 | ER Document Report ---
ED Medical Screen (RME) - General Stated Complaint: BLEEDING/CRAMPING Time Seen by Provider: 06/02/20 14:48 TRAVEL OUTSIDE OF THE [place].S[place] IN LAST 30 DAYS: No - HPI Notes: 06/02/20 15:11 35-year-old female 5 para 2 approximately 8 weeks presents to the emergency room via EMS for vaginal bleeding, pelvic pain and states that she passed embryonic tissue vaginally this morning. She believes she is having a miscarriage and needs a D&C. Patient states that she was seen on MondayMay 29 and discharged home with vaginal spotting and pain and Monday night at [facility] ED for worsening pain, vaginal bleeding where she was told she has a subchorionic hematoma on May 31. Denies any chest pain shortness of breath, fevers or chills. I have greeted and performed a rapid initial assessment of this patient. A comprehensive ED assessment and evaluation of the patient, analysis of test results and completion of the medical decision making process will be conducted by additional ED providers. PHYSICAL EXAMINATION: GENERAL: Well-appearing, well-nourished and in mild distress. HEAD: Atraumatic, normocephalic. NECK: Normal range of motion CV: s1, s2 regular LUNGS: No respiratory distress abd: lower abd pain - Related Data Allergies/Adverse Reactions: ketorolac [From Toradol] Allergy (Verified 01/29/20 13:11) NSAIDS (Non-Steroidal Anti-Inflamma Adverse Reaction (Verified 01/29/20 13:11) Past Medical History - Immunizations Immunizations up to date: Yes Physical Exam - Vital signs Vitals: Temp Pulse Resp BP Pulse Ox 97.9 F 103 H 20 138/96 H 97 06/02/20 14:14 06/02/20 14:14 06/02/20 14:14 06/02/20 14:14 06/02/20 14:14 Course - Vital Signs Vital signs: Temp Pulse Resp BP Pulse Ox 97.9 F 103 H 20 138/96 H 97 06/02/20 14:14 06/02/20 14:14 06/02/20 14:14 06/02/20 14:14 06/02/20 14:14 - Laboratory Result Diagrams: 06/02/20 15:00 06/02/20 15:00 Laboratory results interpreted by me: 06/02/20 06/02/20 15:00 15:00 WBC 14.0 H MCH 25.9 L RDW 16.6 H Absolute Neuts (auto) 10.8 H Chloride 110 H Carbon Dioxide 21 L BUN 3 L Creatinine 0.47 L Beta HCG, Quant 86500.00 H
[2020-06-02 15:30] LABS: ABSOLUTE BASOPHILS # (AUTO) 0.1 10^3/uL (0.0-0.2); ABSOLUTE EOSINOPHILS # (AUTO) 0.4 10^3/uL (0.0-0.6); ABSOLUTE LYMPHOCYTES (AUTO) 2.2 10^3/uL (0.5-4.7); ABSOLUTE MONOCYTES (AUTO) 0.5 10^3/uL (0.1-1.4); ABSOLUTE NEUT (AUTO) 10.8 10^3/uL (1.7-8.2); BASOPHILS % (AUTO) 0.4 % (0-2); HEMATOCRIT 39.4 % (36.0-47.0); HEMOGLOBIN 12.7 g/dL (12.0-15.5); LYMPHOCYTES % (AUTO) 15.4 % (13-45); MEAN CORPUSCULAR HEMOGLOBIN 25.9 pg (27.0-33.4); MEAN CORPUSCULAR HGB CONC 32.3 g/dL (32.0-36.0); MEAN CORPUSCULAR VOLUME 80 fl (80-97); MONOCYTES % (AUTO) 3.8 % (3-13); PLATELET COUNT 180 10^3/uL (150-450); RED CELL DISTRIBUTION WIDTH 16.6 % (11.5-14.0); SEGMENTED NEUTROPHILS % (AUTO) 77.4 % (42-78); TOTAL CELLS COUNTED % (AUTO) 100 %
[2020-06-02 15:55] LABS: ALBUMIN 4.1 g/dL (3.5-5.0); ALKALINE PHOSPHATASE 56 U/L (38-126); ANION GAP 7 (5-19); ASPARTATE AMINO TRANSFERASE 14 U/L (14-36); BILIRUBIN,TOTAL 0.2 mg/dL (0.2-1.3); BLOOD UREA NITROGEN 3 mg/dL (7-20); CALCIUM 9.2 mg/dL (8.4-10.2); CARBON DIOXIDE 21 mmol/L (22-30); CHLORIDE 110 mmol/L (98-107); GLUCOSE 96 mg/dL (75-110); POTASSIUM 4.2 mmol/L (3.6-5.0); TOTAL PROTEIN 6.9 g/dL (6.3-8.2)
[2020-06-02] MEDS ORDERED: ACETAMINOPHEN SOLN 325 MG/10.15 ML UDCUP PO ONE (16:18)
--- NOTE | 2020-06-02 16:29 | RADIOLOGY REPORT (SQ) ---
EXAM DESCRIPTION: U/S OB TRANSVAG W/DOPPLER IMAGES COMPLETED DATE/TIME: 06/02/2020 3:55 pm REASON FOR STUDY: 8w preg, passed tissue this am,+vag bleeding COMPARISON: 05/31/2020 TECHNIQUE: Transvaginal static and realtime grayscale images acquired of the pelvis. Additional karena cted spectral and color Doppler images recorded. All images stored on PACs. bHCG: Pending. CLINICAL DATES: ABRAHAN: 01/11/2021. EGA: 8 weeks 1 day LIMITATIONS: Suboptimal examination due to descended urinary bladder. The patient was unable to voi d due to pain and limited mobility. FINDINGS: FETUS: According to the clinical history, the patient passed tissue this A.M. on UTERUS: The uterus measures 13.0 x 5.1 x 6.8 cm. A 6.0 x 2.0 x 2.5 cm heterogenous area with mobile debris is located within the endometrial cavity and extends into the cervical region. This finding m ay be on the basis of hematoma. No blood flow demonstrated. CERVICAL LENGTH: The cervix measures 4.7 cm in length. Closed. RIGHT ADNEXA: Not visualized due to overlying bowel gas. LEFT ADNEXA: Not visualized due to overlying bowel gas. Small amount of free fluid in the left adne xum. FREE FLUID: See above. OTHER: No other significant finding. IMPRESSION: 1. No evidence of LIVING INTRAUTERINE . According to the clinical history, th e patient passed tissue on 06/02/2020. 2. There is a heterogenous area within the endometrium with some extension into the cervix. No bloo d flow demonstrated. This finding may be on the basis of hematoma. 3. The ovaries are not identified due to overlying bowel gas. Small amount of free fluid in the lef t adnexum. TECHNICAL DOCUMENTATION: JOB ID: [id number] 2010 [employer]- All Rights Reserved rev-04/06 Reading location - IP/workstation name: [email or web address]
[2020-06-02] MEDS ORDERED: NORMAL SALINE 1000 ML 1,000 ML IV ONE (18:21)
[2020-06-02] MEDS ORDERED: MORPHINE SULFATE 10 MG/ML INJ IV ONE (19:35)
[2020-06-02] MEDS ORDERED: HYDROMORPHONE HCL INJ/PF 2 MG/ML AMPULE IM ONE (20:33)
[2020-06-02] MEDS ORDERED: PROMETHAZINE HCL INJ 25 MG/1 ML VIAL IM ONE (20:33)
--- NOTE | 2020-06-02 20:35 | ER Document Report ---
ED General - General Chief Complaint: OB Problem (<20wks) Stated Complaint: BLEEDING/CRAMPING Time Seen by Provider: 06/02/20 14:48 TRAVEL OUTSIDE OF THE U.S. IN LAST 30 DAYS: No - HPI Notes: Patient is a 35-year-old female, G5, P2 at approximately 8 weeks gestation, who presents to the emergency department for vaginal bleeding. She was seen here 2 days ago for threatened miscarriage and subchorionic hematoma. She states she had an appointment today at 2:00, but her pain increased, her bleeding inc reased, and she passed some tissue. Based on that she presented to the emergency department for evaluation instead of following up with the OB. - Related Data Allergies/Adverse Reactions: ketorolac [From Toradol] Allergy (Verified 01/29/20 13:11) NSAIDS (Non-Steroidal Anti-Inflamma Adverse Reaction (Verified 01/29/20 13:11) Home Medications: lyrica, gabapentin Past Medical History - Social History Smoking Status: Current Every Day Smoker Frequency of alcohol use: None Drug Abuse: None Family History: Reviewed & Not Pertinent - Immunizations Immunizations up to date: Yes Physical Exam - Vital signs Vitals: Temp Pulse Resp BP Pulse Ox 97.9 F 103 H 20 138/96 H 97 06/02/20 14:14 06/02/20 14:14 06/02/20 14:14 06/02/20 14:14 06/02/20 14:14 - Notes Notes: This is an obese 35-year-old female who appears her stated age in no acute distress.Vital signs reviewed, please refer to chart. Head is normocephalic, atraumatic. Pupils equal round, reactive to light. Neck is supple without meningismus. Heart is regular rate and rhythm. Lungs are clear to auscultation bilaterally. Abdomen is soft, nontender, normoactive bowel sounds throughout. Extremities without cyanosis, clubbing. Posterior calves are nontender. Peripheral pulses are equal. Skin is warm and dry. Patient is awake, alert, neurological exam is nonfocal. Pelvic exam was performed with IGNACIA Eaton, present. Patient has normal external genitalia. She has mild vaginal bleeding with a small clot noted in the vagina. Cervix is closed. No tissue trapped in the cervix. Course - Re-evaluation Re-evalutation: 07/14/20 21:39 Patient presents to the emergency department for evaluation of vaginal bleeding. She states she today. Ultrasound confirms that the patient has a hematoma but no living intrauterine is noted. Patient states that her bleeding is slowed to about the bleeding that she experiences with normal menstruation. She insists she needs a D&C. I did review this patient's lab work and multiple recent ultrasounds. I spoke with Dr. Khan, on-call OB. We discussed her findings, stable vitals. She states that in the absence of significant hemorrhage there would be no indication for an emergent D&C and the patient can follow-up tomorrow. I performed a pelvic exam and she has minimal bleeding at best. Her cervix is closed. Her quant is coming down. The patient complained of significant pain, but she does appear to have multiple chronic pain issues. She was medicated here, I will send her home with a to go pack of [employer] and she is to follow-up with OB tomorrow. 06/02/20 21:42 Please note patient already received RhoGam 2 days ago. She was treated with Rocephin and Zithromax. I did send a dirty urine for gonorrhea and chlamydia. - Vital Signs Vital signs: Temp Pulse Resp BP Pulse Ox 98.2 F 86 14 126/59 H 100 06/02/20 20:04 06/02/20 20:04 06/02/20 20:04 06/02/20 20:04 06/02/20 20:04 - Laboratory Result Diagrams: 06/02/20 15:00 06/02/20 15:00 Laboratory results interpreted by me: 06/02/20 06/02/20 06/02/20 15:00 15:00 19:55 WBC 14.0 H MCH 25.9 L RDW 16.6 H Absolute Neuts (auto) 10.8 H Chloride 110 H Carbon Dioxide 21 L BUN 3 L Creatinine 0.47 L Beta HCG, Quant 61384.00 H Urine Protein 100 H Urine Blood LARGE H Ur Leukocyte Esterase MODERATE H - Diagnostic Test Radiology reviewed: Reports reviewed Radiology results interpreted by me: 06/02/20 21:42 Transvaginal US 06/02/20 14:48 IMPRESSION: 1. No evidence of LIVING INTRAUTERINE . According to the clinical history, the patient passed tissue on 06/02/2020. 2. There is a heterogenous area within the endometrium with some extension into the cervix. No blood flow demonstrated. This finding may be on the basis of hematoma. 3. The ovaries are not identified due to overlying bowel gas. Small amount of free fluid in the left adnexum. Discharge - Discharge Clinical Impression: Complete miscarriage Condition: Stable Disposition: HOME, SELF-CARE Instructions: Miscarriage ([facility]) Additional Instructions: Complete pelvic rest. Wear pads. Follow-up with the women's clinic tomorrow. If you develop develop bleeding heavier than 1 pad an hour, chest pain, shortness of breath, or any other new or concerning symptoms, please return immediately to the emergency department for evaluation.
[2020-06-02 20:40] LABS: APPEARANCE,URINE SLIGHTLY-CLOUDY; BILIRUBIN,URINE NEGATIVE (NEGATIVE); COLOR,URINE RED; GLUCOSE, URINE NEGATIVE (NEGATIVE); KETONES,URINE NEGATIVE (NEGATIVE); LEUKOCYTE ESTERASE,URINE MODERATE (NEGATIVE); NITRITE,URINE NEGATIVE (NEGATIVE); PROTEIN,URINE 100 mg/dL (NEGATIVE); URINE SPECIFIC GRAVITY 1.009; UROBILINOGEN,URINE NEGATIVE mg/dL (<2.0)
[2020-06-02] MEDS ORDERED: HYDROCODONE/ACETAMINOPHEN 5-325 MG (6 TAB/ER DISP) PO PRN (21:43)
[2020-06-02 22:15] VITALS: BP 143/60
[2020-06-03 00:35] LABS: CHLAM PCR NOT DETECTED (NOT DETECT)
== END 2020-06-02 22:22 | disposition home or self-care (01) ==
LOC: ER 13:50
DX: O03.9 Complete or unspecified spontaneous abortion without complication (principal); R10.2 Pelvic and perineal pain; E66.9 Obesity, unspecified; F17.200 Nicotine dependence, unspecified, uncomplicated; Z79.899 Other long term (current) drug therapy; Z88.8 Allergy status to other drugs, medicaments and biological substances
CPT/HCPCS: 96376; 99284; 96372; 96361; 96374; 96375; 36415; 84702; 83690; 85025; 80053; 81001; 87491; 87591; 76817; 93976; J2270; J1170; J2550; J2405; J7030

== ENCOUNTER 2020-06-04 17:22 | Emergency (ER) | payer SELFPAY ==
--- NOTE | 2020-06-04 18:17 | ER Document Report ---
ED Medical Screen (RME) - General Chief Complaint: Vaginal Bleeding Stated Complaint: VAGINAL BLEEDING,ABDOMINAL PAIN Time Seen by Provider: 06/04/20 18:10 Mode of Arrival: Wheelchair Information source: Patient Notes: 35-year-old female presented to ED for complaint of vaginal bleeding. She states she had a miscarriage on Monday. She states she was scheduled for preop at the diagnostic center. She states she soaked more than 1-1/2 pads between going to [facility] and going to the diagnostic center. She states she is still passing bluish-melgar tissue. She states that she has a paper from [facility] that if she had more than a certain amount of bleeding she was to come to the emergency room. She states she has a history of pancreatitis, trigeminal neuralgia, 2 emergency D&Cs, and 2 C-sections. She states she is also had ear tubes when she was a child and surgery on her right fifth finger. She does smoke 15 cigarettes a day denies use of alcohol or drugs. Patient is alert oriented respirations regular nonlabored speaking in full sentences. I have greeted and performed a rapid initial assessment of this patient. A comprehensive ED assessment and evaluation of the patient, analysis of test results and completion of medical decision making process will be conducted by an additional ED providers. TRAVEL OUTSIDE OF THE U.S. IN LAST 30 DAYS: No - Related Data Allergies/Adverse Reactions: ketorolac [From Toradol] Allergy (Verified 01/29/20 13:11) NSAIDS (Non-Steroidal Anti-Inflamma Adverse Reaction (Verified 01/29/20 13:11) Past Medical History - Immunizations Immunizations up to date: Yes Physical Exam - Vital signs Vitals: Temp Pulse Resp BP Pulse Ox 98.3 F 106 H 20 119/89 H 98 06/04/20 17:36 06/04/20 17:36 06/04/20 17:36 06/04/20 17:36 06/04/20 17:36 Course - Vital Signs Vital signs: Temp Pulse Resp BP Pulse Ox 98.3 F 106 H 20 119/89 H 98 06/04/20 17:36 06/04/20 17:36 06/04/20 17:36 06/04/20 17:36 06/04/20 17:36
[2020-06-04 18:36] LABS: ABSOLUTE EOSINOPHILS # (AUTO) 0.3 10^3/uL (0.0-0.6); ABSOLUTE LYMPHOCYTES (AUTO) 2.1 10^3/uL (0.5-4.7); ABSOLUTE MONOCYTES (AUTO) 0.4 10^3/uL (0.1-1.4); ABSOLUTE NEUT (AUTO) 6.1 10^3/uL (1.7-8.2); BASOPHILS % (AUTO) 0.2 % (0-2); EOSINOPHILS % (AUTO) 3.9 % (0-6); HEMATOCRIT 35.2 % (36.0-47.0); LYMPHOCYTES % (AUTO) 23.4 % (13-45); MEAN CORPUSCULAR HEMOGLOBIN 27.2 pg (27.0-33.4); MEAN CORPUSCULAR HGB CONC 34.2 g/dL (32.0-36.0); MEAN CORPUSCULAR VOLUME 80 fl (80-97); MONOCYTES % (AUTO) 4.3 % (3-13); PLATELET COUNT 163 10^3/uL (150-450); RED BLOOD COUNT 4.42 10^6/uL (3.72-5.28); RED CELL DISTRIBUTION WIDTH 16.7 % (11.5-14.0); SEGMENTED NEUTROPHILS % (AUTO) 68.2 % (42-78); TOTAL CELLS COUNTED % (AUTO) 100 %
[2020-06-04 18:57] LABS: ALBUMIN 3.9 g/dL (3.5-5.0); ALKALINE PHOSPHATASE 40 U/L (38-126); ANION GAP 8 (5-19); ASPARTATE AMINO TRANSFERASE 15 U/L (14-36); BILIRUBIN,TOTAL 0.3 mg/dL (0.2-1.3); BLOOD UREA NITROGEN 2 mg/dL (7-20); CALCIUM 9.1 mg/dL (8.4-10.2); CARBON DIOXIDE 23 mmol/L (22-30); CHLORIDE 106 mmol/L (98-107); GLUCOSE 91 mg/dL (75-110); POTASSIUM 3.8 mmol/L (3.6-5.0); TOTAL PROTEIN 6.7 g/dL (6.3-8.2)
[2020-06-04] MEDS ORDERED: ONDANSETRON 4 MG TAB.RAPDIS PO ONE (22:54)
[2020-06-04] MEDS ORDERED: NORMAL SALINE 1000 ML 1,000 ML IV ONE (22:55)
[2020-06-04] MEDS ORDERED: MORPHINE SULFATE 10 MG/ML INJ IV ONE (23:32)
[2020-06-05] MEDS ORDERED: PROMETHAZINE HCL INJ 50 MG/1 ML VIAL IM ONE (00:33)
[2020-06-05] MEDS ORDERED: DIPHENHYDRAMINE HCL 25 MG CAPSULE PO ONE (00:33)
[2020-06-05] MEDS ORDERED: PROMETHAZINE HCL INJ 25 MG/1 ML VIAL ONE (00:48)
--- NOTE | 2020-06-05 00:54 | RADIOLOGY REPORT (SQ) ---
EXAM DESCRIPTION: US TRANSVAGINAL COMPLETED DATE/TME: 06/04/2020 22:56 CLINICAL HISTORY: 35 years, Female, evaluate for hematoma COMPARISON: None. TECHNIQUE: LIMITATIONS: None. FINDINGS: The endometrial stripe is thickened, measuring 28 mm, compatible with blood clot and/or retained products of conception. The uterus measures 11.7 x 6.8 x 6.5 cm. The right ovary is unremarkable. The left ovary was obscured by bowel gas. No free fluid. IMPRESSION: Thickened endometrium, compatible with blood clot and/or retained products of conception. copyright 2010 [employer]- All Rights Reserved
--- NOTE | 2020-06-05 01:04 | ER Document Report ---
ED General - General Chief Complaint: Vaginal Bleeding Stated Complaint: VAGINAL BLEEDING,ABDOMINAL PAIN Time Seen by Provider: 06/04/20 18:10 Mode of Arrival: Wheelchair Notes: 35-year-old female with a past medical history of trigeminal neuralgia, chronic pancreatitis presenting with continued vaginal bleeding after being seen in the emergency department for a complete on 06/02. She was seen in the emergency department on 05/29 and it was noted that she had a threatened miscarriage and subchorionic hematoma. She then continued to have vaginal bleeding and a repeat ultrasound showed no intrauterine at this time Her beta quant was also trending down. She was referred to the women's center for a D&C. States that she does have some abdominal pain. She states that she had her preop appointment today with Dr. Nguyen and when she went over to the diagnostic center for lab work she noted that she had been bleeding through her pad in a half an hour. She states that she was instructed to come back to the emergency department if she was bleeding through a pad or tampon within an hour and a half. Patient reports that she has had some bluish-melgar tissue and increased vaginal bleeding today. She denies any fevers or chills. TRAVEL OUTSIDE OF THE U.S. IN LAST 30 DAYS: No - Related Data Allergies/Adverse Reactions: ketorolac [From Toradol] Allergy (Verified 01/29/20 13:11) NSAIDS (Non-Steroidal Anti-Inflamma Adverse Reaction (Verified 01/29/20 13:11) Past Medical History - General Information source: Patient - Social History Smoking Status: Never Smoker Family History: Reviewed & Not Pertinent Past Surgical History: Reports: Hx Section, Hx Gynecologic Surgery - Immunizations Immunizations up to date: Yes Review of Systems - Review of Systems Constitutional: See HPI EENT: No symptoms reported Cardiovascular: No symptoms reported Respiratory: No symptoms reported Gastrointestinal: See HPI Genitourinary: No symptoms reported Female Genitourinary: See HPI Skin: No symptoms reported Neurological/Psychological: No symptoms reported Physical Exam - Vital signs Vitals: Temp Pulse Resp BP Pulse Ox 98.3 F 106 H 20 119/89 H 98 06/04/20 17:36 06/04/20 17:36 06/04/20 17:36 06/04/20 17:36 06/04/20 17:36 Interpretation: Tachycardic. No: Hypoxic, Febrile - Notes Notes: Pelvic exam chaperoned by Maria G BETH Adult General: GENERAL: Alert, interacts well. No acute distress HEAD: Normocephalic, atraumatic EYES: Pupils equal, round and reactive to light. Extraocular movements intact. ENT: Airway patent. Nares patent. NECK: Full range of motion. Supple. Trachea midline. LUNGS: Clear to auscultation bilaterally, no wheezes, rales, or rhonchi. No respiratory distress. Nontender chest wall. HEART: Regular rate and rhythm. No murmurs, rubs or gallops. ABDOMEN: Soft, mildly tender in bilateral lower quadrants. Nondistended. (-) Vallejo sign. Bowel sounds present in all 4 quadrants. No rebound, guarding or masses. GENITOURINARY: small clots in vaginal canal. EXTREMITIES: Moves all 4 extremities spontaneously. BACK: Moves all extremities with full range of motion. NEUROLOGICAL: Alert and oriented x3. Normal speech. Strength 5/ 5 in all extremities. PSYCH: Normal affect, normal mood. SKIN: Warm, dry, normal turgor. No rashes or lesions noted. Course - Re-evaluation Re-evalutation: 06/05/20 01:05 Patient's hemoglobin is 12. This is down from 2 days ago as 12 from 12.9. Her beta quant is also down to 1209 from 14,002 days ago. Ultrasound shows 28 mm endometrial stripe consistent with either blood clot or retained products of conception. Received RhoGam on the . 06/05/20 01:09 Patient was reevaluated. States that she still in a lot of pain. She desires an IM medication versus IV medication. She also verbally states that she will not leave the emergency department or the hospital unless she has a D&C. Her ultrasound shows a hematoma vs retained products of conception. 06/05/20 01:47 I called the information tech financial systems manager provider Dr. Hernandez. He states that the patient is stable and that she will need to follow up on Monday for the D & C. He states that patient was evaluated today and that she is stable enough to wait until Monday. I reiterated that she states she will not leave the hospital or emergency department until she has the procedure. He continues to reiterate gideon t patient is stable based on a hemoglobin of 12. 06/05/20 01:59 Discussed these findings with the patient. She states that she is very upset and believes that if additional intervention was performed on the and that she was given potassium and IV fluids that this would not be an issue at this time. States that her provider had this and will and focused on her right lower quadrant more that this also would not be an issue. Patient states that she needs to see someone for mental health. States that she is not suicidal and she is not homicidal. I provided patient mental health crisis number for [place]. Recommend she follows up with the number. I also discussed return precautions to the emergency department to include worsening symptoms or the development of new symptoms. Also recommend patient find a primary care so she can also seek additional treatment for this. I discussed all findings with the patient and patient acknowledges and verbalizes understandng of instructions and plan. She is specifically asking for additional pain medicine and Zofran because she still is in severe pain and nauseated. Wants zofran tablet, not sublingual. All questions answered. After ordering zofran tabs, patient now desires sublingual as they can be provided in the ER and her insurance won't pay for a script of zofran. New orderes placed. - Vital Signs Vital signs: Temp Pulse Resp BP Pulse Ox 98.7 F 99 17 130/85 H 100 06/05/20 02:40 06/05/20 02:40 06/05/20 02:40 06/05/20 02:40 06/05/20 02:40 - Laboratory Result Diagrams: 06/04/20 18:20 06/04/20 18:20 Laboratory results interpreted by me: 06/04/20 06/04/20 18:20 18:20 Hct 35.2 L RDW 16.7 H Sodium 136.7 L BUN 2 L Creatinine 0.51 L Beta HCG, Quant 1209.10 H Discharge - Discharge Clinical Impression: Vaginal bleeding Condition: Stable Disposition: HOME, SELF-CARE Instructions: Oral Narcotic Medication ([facility]), Vaginal Bleeding ([facility]) Additional Instructions: Your hemoglobin today is 12. I recommend you [facility] for your continued vaginal bleeding and to keep your scheduled appointment for a D&C. You may return to the emergency department if you have worsening symptoms or development of new symptoms. I also would recommend trying to establish care with a primary care provider to discuss your mental health concerns. The [place] crisis number is [phone]. Please return to the emergency department or call 911 if you have thoughts of hurting yourself or someone else. You were provided Zofran and pain medication in the emergency department please take medication as prescribed.
[2020-06-05] MEDS ORDERED: HALOPERIDOL LACTATE INJ 5 MG/1 ML VIAL IM ONE (01:48)
[2020-06-05] MEDS ORDERED: ONDANSETRON ODT 4 MG TAB (6 TAB/ER DISP) PO PRN ×2 (02:03→02:24)
[2020-06-05] MEDS ORDERED: HYDROCODONE/ACETAMINOPHEN 5-325 MG (6 TAB/ER DISP) PO PRN (02:03)
[2020-06-05 02:50] VITALS: BP 130/85
== END 2020-06-05 02:50 | disposition home or self-care (01) ==
LOC: ER 17:22
DX: O03.6 Delayed or excessive hemorrhage following complete or unspecified spontaneous abortion (principal); R10.9 Unspecified abdominal pain; R11.0 Nausea; Z88.8 Allergy status to other drugs, medicaments and biological substances
CPT/HCPCS: 99284; 96372; 96361; 96374; 36415; 84702; 80053; 76817; S0119; J1630; J2270; J2550; J7030

== ENCOUNTER 2020-06-08 11:58 | Day surgery (SDC) | payer SELFPAY ==
[2020-06-04 17:36] LABS: HEMATOCRIT 36.4 % (36.0-47.0); MEAN CORPUSCULAR HEMOGLOBIN 26.4 pg (27.0-33.4); MEAN CORPUSCULAR VOLUME 80 fl (80-97); PLATELET COUNT 158 10^3/uL (150-450); RED BLOOD COUNT 4.55 10^6/uL (3.72-5.28); RED CELL DISTRIBUTION WIDTH 16.3 % (11.5-14.0); WHITE BLOOD COUNT 9.5 10^3/uL (4.0-10.5)
[2020-06-04 17:42] LABS: APPEARANCE,URINE CLEAR; BILIRUBIN,URINE NEGATIVE (NEGATIVE); COLOR,URINE YELLOW; GLUCOSE, URINE NEGATIVE (NEGATIVE); KETONES,URINE NEGATIVE (NEGATIVE); LEUKOCYTE ESTERASE,URINE MODERATE (NEGATIVE); NITRITE,URINE NEGATIVE (NEGATIVE); PROTEIN,URINE NEGATIVE (NEGATIVE); UROBILINOGEN,URINE NEGATIVE mg/dL (<2.0)
[2020-06-08] MEDS ORDERED: FENTANYL CITRATE INJ/PF 100 MCG/2 ML AMPUL ONE (13:11)
[2020-06-08] MEDS ORDERED: KETOROLAC TROMETHAMINE 60 MG/2 ML SDV ONE (13:11)
[2020-06-08] MEDS ORDERED: PROPOFOL INJ 200 MG/20 ML VIAL IV ONE ×2 (13:11→14:41)
[2020-06-08] MEDS ORDERED: ONDANSETRON HCL INJ/PF 4 MG/2 ML SDV ONE ×2 (13:11→13:22)
[2020-06-08] MEDS ORDERED: MIDAZOLAM 2 MG/2 ML INJ ONE ×2 (13:11→13:22)
[2020-06-08] MEDS ORDERED: DOXYCYCLINE HYCLATE 200 MG in DEXTROSE 5%-WATER 250 ML IV PRN (13:24)
[2020-06-08] MEDS ORDERED: ONDANSETRON HCL INJ/PF 4 MG/2 ML SDV IV ONE (13:30)
[2020-06-08] MEDS ORDERED: DEXMEDETOMIDINE INJ 80 MCG/20 ML VIAL IV ONE (13:31)
[2020-06-08] MEDS ORDERED: ONDANSETRON HCL INJ/PF 4 MG/2 ML SDV IV PRN (13:50)
[2020-06-08] MEDS ORDERED: DIPHENHYDRAMINE HCL 50 MG/ML VIAL IV PRN (13:50)
[2020-06-08] MEDS ORDERED: MORPHINE SULFATE 10 MG/ML INJ IV PRN (13:50)
[2020-06-08] MEDS ORDERED: FENTANYL CITRATE INJ/PF 100 MCG/2 ML AMPUL IV PRN ×3 (13:50)
[2020-06-08] MEDS ORDERED: PROMETHAZINE HCL INJ 25 MG/1 ML VIAL IV PRN (13:50)
[2020-06-08] MEDS ORDERED: OXYCODONE-ACETAMINOPHEN 5-325 MG TABLET PO PRN ×4 (13:50→14:28)
[2020-06-08] MEDS ORDERED: MEPERIDINE HCL/PF INJ 25 MG/1 ML DISP.SYRIN IV PRN (13:50)
[2020-06-08] MEDS ORDERED: RINGERS SOLUTION,LACTATED 1,000 ML IV PRN (14:28)
--- NOTE | 2020-06-08 14:33 | Operative Report ---
Operative Report DATE OF SURGERY: 06/08/20 PREOPERATIVE DIAGNOSIS: Missed AB POSTOPERATIVE DIAGNOSIS: Same OPERATION: Suction D&C under ultrasound guidance SURGEON: KATHY SARAH SOLE STAPLER WELT: NAYA IRBY ANESTHESIA: Moderate Sedation TISSUE REMOVED OR ALTERED: Uterine contents COMPLICATIONS: None ESTIMATED BLOOD LOSS: 100 cc INTRAOPERATIVE FINDINGS: Uterus sounded to 12 cm before 10 cm after the case PROCEDURE: Patient was taken the OR and placed in supine position. Anesthesia was induced. She is placed on dorsolithotomy position using Bharat stirrups. Her perineum and vagina were prepared and draped in sterile fashion. A bivalve speculum was placed in the vagina and the anterior lip cervix was grasped with a tenaculum. Uterus sounded to 12 cm before the case. The cervical dilators were placed and the cervix was easily dilated. A size 8 suction curette was used. Very little return of tissue was noted. A ultrasound was brought in the room and ultrasound was done while the D&C was completed. The instruments could be seen going to the fundus of the uterus. The uterine cavity appeared empty at the end of the procedure. A a gentle sharp curettage was carried out as well with no return of tissue. The uterus was once again sounded to 10 cm. All instruments were then removed. The patient was brought out of anesthesia and taken recovery in stable condition.
--- NOTE | 2020-06-08 14:36 | Discharge Summary ---
Discharge Summary (SDC) - Discharge Final Diagnosis: Incomplete miscarriage Date of Surgery: 06/08/20 Discharge Date: 06/08/20 Condition: Good Discharge Diet: Regular Discharge Activity: Pelvic Rest, Slowly Increase Activity Home Care Assistance: None Needed Report the Following to Your Physician Immediately: Fever over 101 Degrees, Large Clots
[2020-06-08] MEDS ORDERED: HYDROMORPHONE HCL INJ/PF 2 MG/ML AMPULE ONE (14:38)
[2020-06-08] MEDS ORDERED: OXYCODONE-ACETAMINOPHEN 5-325 MG TABLET ONE (15:11)
[2020-06-08 16:52] VITALS: BP 122/62
== END 2020-06-08 16:45 | disposition home or self-care (01) ==
LOC: OROUT 11:58
PROVIDERS: ATTEND Obstetrics & Gynecology
DX: O02.1 Missed abortion (principal); J45.909 Unspecified asthma, uncomplicated; F17.210 Nicotine dependence, cigarettes, uncomplicated; G50.0 Trigeminal neuralgia; Z79.899 Other long term (current) drug therapy; Z03.818 Encounter for observation for suspected exposure to other biological agents ruled out
CPT/HCPCS: 59820; 36415; 84702; 85027; 87635; 81001; 88305 ×2; 01965; J2250; J3490 ×2; J3010; J1170; J2405; J7060; J2704; C9803; 1965; J1885

== ENCOUNTER 2020-09-17 13:54 | Observation (INO) | payer SELFPAY ==
[2020-09-17] MEDS ORDERED: LORAZEPAM INJ 2 MG/1 ML VIAL IV ONE ×2 (14:00→15:23)
--- NOTE | 2020-09-17 14:12 | ER Document Report ---
ED General - General Stated Complaint: WEAKNESS Time Seen by Provider: 09/17/20 13:59 Notes: 35-year-old female with a stated history of low cortisol levels, presents with dizziness anxiety tingling and tearfulness. It is incredibly difficult to obtain a history because she is hyperventilating crying and hysterical. EMS noted normal vital signs and blood sugar. Apparently she has been getting dizzy starting this morning to the point where she cannot get up and is very nauseous. She also complains of tingling that goes from her head down her spine into both arms and legs. She also complains of chronic recurrent abdominal pain "from crying and pancreatitis" she was fine until this morning. She moved back to [place] from [place] where she had plenty of doctors in care does not remember if she has been on cortisol supplementation but says she thinks she is supposed to be. She has not had primary care here in [place] because she does not have insurance and has not had contact with the medical community until today. TRAVEL OUTSIDE OF THE U.S. IN LAST 30 DAYS: No - Related Data Allergies/Adverse Reactions: ketorolac [From Toradol] Allergy (Verified 09/17/20 18:09) NSAIDS (Non-Steroidal Anti-Inflamma Adverse Reaction (Verified 09/17/20 18:09) Past Medical History - General Information source: Patient, Emergency Med Personnel - Social History Smoking Status: Unknown if Ever Smoked Family History: Reviewed & Not Pertinent - Past Medical History Cardiac Medical History: Denies: Hx Coronary Artery Disease, Hx Heart Attack, Hx Hypertension Pulmonary Medical History: Denies: Hx Asthma, Hx Bronchitis, Hx COPD, Hx Pneumonia Neurological Medical History: Denies: Hx Cerebrovascular Accident, Hx Seizures Musculoskeletal Medical History: Denies Hx Arthritis Past Surgical History: Reports: Hx Section, Hx Gynecologic Surgery - Immunizations Immunizations up to date: Yes Hx Diphtheria, Pertussis, Tetanus Vaccination: Yes Review of Systems - Review of Systems Notes: REVIEW OF SYSTEMS GEN: Denies generalized weakness crying ENT: Denies sore throat, nasal discharge, ear pain EYES: Denies blurry vision, eye pain, discharge CV: Denies chest pain, palpitations, edema RESP: Denies cough, shortness of breath, wheezing GI: Vomiting abdominal pain MSK: Denies joint pain/swelling, edema, SKIN: Denies rash, skin lesions LYMPH: Denies swollen glands/lymph nodes NEURO: Paresthesias PSYCH: Aubrey PHYSICAL EXAMINATION General: He is lying on her side tearful Head: Atraumatic, normocephalic ENT: Mouth normal, oropharynx moist, no exudates or tonsillar enlargement Eyes: Conjunctiva normal, pupils equal, lids normal Neck: No JVD, supple, no guarding CVS: Normal rate, regular rhythm, no murmurs Resp: Ventilating but clear lungs GI: Nondistended, soft, no tenderness to palpation, no rebound or guarding Ext: No deformities, no edema, normal range of motion in upper and lower ext Back: No CVA or midline TTP Skin: No rash, warm Lymphatic: No lymphadeopathy noted Neuro: Awake, alert. Face symmetric. GCS 15. Will not participate at all with neuro exam including refusing to open eyes. Neuro exam: Multidirectional nystagmus when able to open eyes but is having trouble opening eyes. Positive Lhermitte sign. Effort dependent weakness in all 4 extremities but can gets a 4+ out of 5 strength throughout. Physical Exam - Vital signs Vitals: Temp 97.8 F 09/17/20 13:54 Course - Re-evaluation Re-evalutation: 09/17/20 15:36 Patient presents with abrupt onset tingling in the head and back, with severe dizziness nausea and vomiting. Initially on exam I cannot dissect any focal findings because she is so tearful and upset She was given Ativan which resulted in some calming improvement in her vital signs. The second time I came to examine her she said that she slept woke up and still feels dizzy cannot open her eyes and cannot move. She does not have neck stiffness or fever but does have pain when she flexes her chin and she says the pain shoots down her back. She has a mild headache. She is afebrile. On repeat exam she does have nystagmus but her eye exam is very difficult because she cannot keep her eyes open long enough to do much. Her eye range of motion seems intact. I am concerned mostly for vertigo, possibly central, MS, mass but not stroke given the symmetric nature of her symptoms. Meningitis would also be on the list but her white count is only slightly outside the normal range and she is afebrile. Her neck movements are only painful in flexion but not turning the head. She is now complained that she has a history of bilateral trigeminal neuralgia. Overall I think this patient will not be able to be discharged so we will obtain a head CT to rule out mass and bleed and then admit to hospitalist for further work-up and testing. 09/17/20 19:19 Patient became irate when I told her she could not have a visitor. I spent at least 15 minutes talking with her trying to get her to stay but she pulled out her IV and stormed out of the emergency department. I signed an AMA paper but not sure she signed it. She would not listen when I was explaining risks of julissa garrido. - Vital Signs Vital signs: Temp Pulse Resp BP Pulse Ox 97.8 F 20 127/81 H 99 09/17/20 13:54 09/17/20 15:00 09/17/20 14:24 09/17/20 15:00 - Laboratory Result Diagrams: 09/17/20 14:42 09/17/20 14:42 Laboratory results interpreted by me: 09/17/20 09/17/20 14:42 14:42 WBC 11.2 H MCV 78 L MCH 26.4 L RDW 15.6 H Lymph % (Auto) 11.7 L Absolute Neuts (auto) 9.3 H Seg Neutrophils % 83.2 H Carbon Dioxide 20 L - Diagnostic Test Radiology reviewed: Image reviewed, Reports reviewed Discharge - Discharge Clinical Impression: Vertigo Condition: Fair Disposition: AGAINST MEDICAL ADVICE Admitting Provider: Amrit (Hospitalist) Unit Admitted: Medical Floor
[2020-09-17 14:41] VITALS: BP 127/81
[2020-09-17 14:52] LABS: ABSOLUTE EOSINOPHILS # (AUTO) 0.2 10^3/uL (0.0-0.6); ABSOLUTE LYMPHOCYTES (AUTO) 1.3 10^3/uL (0.5-4.7); ABSOLUTE MONOCYTES (AUTO) 0.4 10^3/uL (0.1-1.4); ABSOLUTE NEUT (AUTO) 9.3 10^3/uL (1.7-8.2); BASOPHILS % (AUTO) 0.3 % (0-2); EOSINOPHILS % (AUTO) 1.4 % (0-6); HEMATOCRIT 40.4 % (36.0-47.0); HEMOGLOBIN 13.6 g/dL (12.0-15.5); LYMPHOCYTES % (AUTO) 11.7 % (13-45); MEAN CORPUSCULAR HEMOGLOBIN 26.4 pg (27.0-33.4); MEAN CORPUSCULAR HGB CONC 33.8 g/dL (32.0-36.0); MEAN CORPUSCULAR VOLUME 78 fl (80-97); MONOCYTES % (AUTO) 3.4 % (3-13); PLATELET COUNT 176 10^3/uL (150-450); RED BLOOD COUNT 5.16 10^6/uL (3.72-5.28); RED CELL DISTRIBUTION WIDTH 15.6 % (11.5-14.0); SEGMENTED NEUTROPHILS % (AUTO) 83.2 % (42-78); TOTAL CELLS COUNTED % (AUTO) 100 %; WHITE BLOOD COUNT 11.2 10^3/uL (4.0-10.5)
[2020-09-17 15:09] LABS: ANION GAP 14 (5-19); BLOOD UREA NITROGEN 7 mg/dL (7-20); CALCIUM 9.8 mg/dL (8.4-10.2); CARBON DIOXIDE 20 mmol/L (22-30); CHLORIDE 107 mmol/L (98-107); GLUCOSE 101 mg/dL (75-110)
[2020-09-17] MEDS ORDERED: MECLIZINE HCL 25 MG TABLET PO ONE (15:23)
--- NOTE | 2020-09-17 16:25 | RADIOLOGY REPORT (SQ) ---
EXAM DESCRIPTION: CT HEAD WITHOUT IMAGES COMPLETED DATE/TIME: 09/17/2020 4:13 pm REASON FOR STUDY: dizzy vertigo COMPARISON: None. TECHNIQUE: Axial images acquired through the brain without intravenous contrast. Images reviewed wi th bone, brain and subdural windows. Additional sagittal and coronal reconstructions were generated. Images stored on PACS. All CT scanners at this facility use dose modulation, iterative reconstruction, and/or weight based d osing when appropriate to reduce radiation dose to as low as reasonably achievable (ALARA). [facility]: Dose Right [facility]: CareDose [facility]: Dose Right [facility]: Teradose 4D [facility]: Smart RescueTime RADIATION DOSE: CT Rad equipment meets quality standard of care and radiation dose reduction techniq ues were employed. CTDIvol: 53.2 mGy. DLP: 991 mGy-cm. mGy. LIMITATIONS: None. FINDINGS: VENTRICLES: Normal size and contour. CEREBRUM: No masses. No hemorrhage. No midline shift. No evidence for acute infarction. Normal gra y/white matter differentiation. No areas of low density in the white matter. CEREBELLUM: No masses. No hemorrhage. No alteration of density. No evidence for acute infarction. EXTRAAXIAL SPACES: No fluid collections. No masses. ORBITS AND GLOBE: No intra- or extraconal masses. Normal contour of globe without masses. CALVARIUM: No fracture. PARANASAL SINUSES: No fluid or mucosal thickening. SOFT TISSUES: No mass or hematoma. OTHER: No other significant finding. IMPRESSION: NORMAL BRAIN CT WITHOUT CONTRAST. EVIDENCE OF ACUTE STROKE: NO. COMMENT: Quality ID # [id number]: Final reports with documentation of one or more dose reduction techniques (e.g., Automated exposure control, adjustment of the mA and/or kV according to patient size, use of iterative reconstruction technique) TECHNICAL DOCUMENTATION: JOB ID: [id number] 2010 [employer]- All Rights Reserved Reading location - IP/workstation name: [email or web address]
--- NOTE | 2020-09-17 18:23 | EKG REPORT ---
SEVERITY:- NORMAL ECG - SINUS RHYTHM : Confirmed by: Ismael Dodd MD 17-Sep-2020 18:23:04
[2020-09-17] MEDS ORDERED: ONDANSETRON HCL INJ/PF 4 MG/2 ML SDV IV PRN (18:55)
[2020-09-17] MEDS ORDERED: LORAZEPAM INJ 2 MG/1 ML VIAL IV PRN (18:55)
[2020-09-17] MEDS ORDERED: DIPHENHYDRAMINE HCL 50 MG/ML VIAL IV PRN (18:55)
[2020-09-17] MEDS ORDERED: DEXTROSE 5%-LACTATED RINGERS 1,000 ML IV PRN (18:55)
[2020-09-17] MEDS ORDERED: ACETAMINOPHEN 325 MG TABLET PO PRN (18:55)
[2020-09-17] MEDS ORDERED: GABAPENTIN 400 MG CAPSULE PO SCH (22:00)
[2020-09-17] MEDS ORDERED: PREGABALIN 100 MG CAPSULE PO SCH (22:00)
[2020-09-17] MEDS ORDERED: HEPARIN SOD (PORCINE) 5,000 UNIT/ML 1 ML VIAL SUBCUT SCH (22:00)
[2020-09-17] MEDS ORDERED: (PENDING PHARMACY ID) (Pregabalin [Lyrica] 200 MG) PO SCH (22:00)
--- NOTE | 2020-09-17 23:20 | RADIOLOGY REPORT (SQ) ---
EXAM DESCRIPTION: CLINICAL HISTORY: vertigo COMPARISON: None TECHNIQUE: Multiplanar multisequence imaging of the brain without the intravenous administration of contrast. FINDINGS: There is fluid in the frontal sinus most consistent with acute paranasal sinusitis. The CP angles and IACs appear normal. There is no evidence of acute mass, mass effect, midline shift or hemorrhage. No focal abnormal extra-axial fluid collection is seen. The ventricles, basal cisterns and extra-axial fluid spaces are normal in size and configuration. Brain parenchymal signal is normal. IMPRESSION: Probable acute paranasal sinusitis. No acute abnormalities.
== END 2020-09-17 17:36 | disposition left against medical advice (07) ==
LOC: ER 13:54 → EH 17:00
PROVIDERS: ADMIT Internal Medicine; ATTEND Internal Medicine
DX: R42 Dizziness and giddiness (principal); F41.9 Anxiety disorder, unspecified; R20.2 Paresthesia of skin; K85.90 Acute pancreatitis without necrosis or infection, unspecified; R06.4 Hyperventilation; R53.1 Weakness; R51.9 Headache, unspecified; R11.2 Nausea with vomiting, unspecified; H55.00 Unspecified nystagmus; Z86.69 Personal history of other diseases of the nervous system and sense organs
CPT/HCPCS: 93005; 99285; 96374; 96375; 36415; 83690; 85025; 80048; 70551; 70450; 93010; J2060

== ENCOUNTER 2020-09-17 17:58 | Observation (INO) | payer SELFPAY ==
--- NOTE | 2020-09-17 18:22 | ER Document Report ---
ED General - General Chief Complaint: Dizziness Stated Complaint: NUMBNESS Time Seen by Provider: 09/17/20 18:15 Notes: 34-year-old female presents with severe vertigo nausea and vomiting. For about 1 day. Numbness and tingling with head pain going down her back. I saw her earlier today and she left AGAINST MEDICAL ADVICE/eloped but now she is back having changed her mind. I was called to see her in triage as she had taken herself out of the chair and laid on the floor refusing to get up. TRAVEL OUTSIDE OF THE [place] IN LAST 30 DAYS: No - Related Data Allergies/Adverse Reactions: ketorolac [From Toradol] Allergy (Verified 09/17/20 18:09) NSAIDS (Non-Steroidal Anti-Inflamma Adverse Reaction (Verified 09/17/20 18:09) Home Medications: lyrica. gabapentin Past Medical History - General Information source: Patient - Social History Smoking Status: Current Every Day Smoker Chew tobacco use (# tins/day): No Frequency of alcohol use: None Drug Abuse: None Family History: Reviewed & Not Pertinent Patient has homicidal ideation: No - Past Medical History Cardiac Medical History: Denies: Hx Coronary Artery Disease, Hx Heart Attack, Hx Hypertension Pulmonary Medical History: Denies: Hx Asthma, Hx Bronchitis, Hx COPD, Hx Pneumonia Neurological Medical History: Denies: Hx Cerebrovascular Accident, Hx Seizures Musculoskeletal Medical History: Denies Hx Arthritis Past Surgical History: Reports: Hx Section, Hx Gynecologic Surgery, Hx Orthopedic Surgery - right hand - Immunizations Immunizations up to date: Yes Hx Diphtheria, Pertussis, Tetanus Vaccination: Yes Review of Systems - Review of Systems Notes: REVIEW OF SYSTEMS GEN: Denies fever, chills, weight loss ENT: Denies sore throat, nasal discharge, ear pain EYES: Denies blurry vision, eye pain, discharge CV: Denies chest pain, palpitations, edema RESP: Denies cough, shortness of breath, wheezing GI: MSK: Denies joint pain/swelling, edema, SKIN: Denies rash, skin lesions LYMPH: Denies swollen glands/lymph nodes NEURO: Dizziness PSYCH: Denies depression, suicidal or homicidal ideation PHYSICAL EXAMINATION General: On the floor with hands clasped over her abdomen, eyes closed Head: Atraumatic, normocephalic ENT: Mouth normal, oropharynx moist, lips normal Eyes: Conjunctiva normal, pupils equal, lids normal Neck: No JVD, supple, no guarding Resp: No resp distress, equal chest rise GI: Nondistended, no guarding Back: No midline or CVA tenderness Ext: No deformities, no edema Skin: Well-perfused, no rash Neuro: Awake, alert. Face symmetric. Physical Exam - Vital signs Vitals: Temp Pulse Resp BP Pulse Ox 97.7 F 121 H 22 H 127/89 H 98 09/17/20 18:03 09/17/20 18:03 09/17/20 18:03 09/17/20 18:03 09/17/20 18:03 Course - Re-evaluation Re-evalutation: 09/17/20 18:22 Repeat visit for severe vertigo pending MRI and admission Notified hospitalist that she will now stay. IV placed - Vital Signs Vital signs: Temp Pulse Resp BP Pulse Ox 97.7 F 121 H 22 H 127/89 H 98 09/17/20 18:09 09/17/20 18:03 09/17/20 18:03 09/17/20 18:03 09/17/20 18:03 Discharge - Discharge Clinical Impression: Vertigo Condition: Fair Disposition: ADMITTED INPATIENT Admitting Provider: Amrit (Hospitalist) Unit Admitted: Medical Floor
--- NOTE | 2020-09-17 20:23 | PDOC H&P ---
History of Present Illness Admission Date/PCP: 09/17/20 18:44 Patient complains of: Vertigo, panic attack History of Present Illness: KINSEY ECKERT is a 35 year old female, past medical history of trigeminal neuralgia who came in the ED today due to dizziness and panic attacks. According to the patient she dizziness upon waking up this morning described as room spinning with numbness and tingling from her head down to her legs. She also said that she passed out from the dizziness. She denied any chest pain or palpitations. Of note she is very anxious, hysterical and tearful when I was talking to her. She was initially advised to be admitted but went home AGAINST MEDICAL ADVICE. However she did not make it out of the emergency room before coming back due to dizziness and she is now agreeable to be admitted. Past Medical History Cardiac Medical History: Denies: Coronary Artery Disease, Myocardial Infarction, Hypertension Pulmonary Medical History: Denies: Asthma, Bronchitis, Chronic Obstructive Pulmonary Disease (COPD), Pneumonia EENT Medical History: Reports: None Neurological Medical History: Denies: Seizures Endocrine History Note: Has a history of low cortisol, but she is currently not on any steroids. Musculoskeltal Medical History: Denies: Arthritis Hematology: Denies: Anemia Past Surgical History Past Surgical History: Reports: Section, Orthopedic Surgery - right hand, Other - History of miscarriage Social History Information Source: Patient Smoking Status: Current Every Day Smoker Cigarettes Packs Per Day: 1 Electronic Cigarette use?: No Frequency of Alcohol Use: Rare Drugs: None Family History Family History: Reviewed & Not Pertinent Parental Family History Reviewed: No Children Family History Reviewed: No Sibling(s) Family History Reviewed.: No Medication/Allergy Home Medications: Pregabalin [Lyrica] 200 mg PO Q8 06/05/20 Acetaminophen [Tylenol 325 mg Tablet] 650 mg PO Q6HP PRN 09/17/20 Gabapentin [Neurontin 400 mg Capsule] 800 mg PO Q8 09/17/20 Allergies/Adverse Reactions: ketorolac [From Toradol] Allergy (Verified 09/17/20 18:09) NSAIDS (Non-Steroidal Anti-Inflamma Adverse Reaction (Verified 09/17/20 18:09) Review of Systems Constitutional: PRESENT: fatigue Eyes: PRESENT: visual disturbances Ears: ABSENT: hearing changes Nose, Mouth, and Throat: PRESENT: headache(s) Cardiovascular: ABSENT: chest pain, dyspnea on exertion Gastrointestinal: PRESENT: nausea, vomiting. ABSENT: diarrhea, melena Genitourinary: ABSENT: difficulty urinating Musculoskeletal: PRESENT: muscle weakness. ABSENT: joint swelling Integumentary: ABSENT: diaphoresis Neurological: PRESENT: dizziness, numbness, paresthesias. ABSENT: focal weakness Physical Exam Vital Signs: Temp Pulse Resp BP Pulse Ox 97.7 F 121 H 22 H 127/89 H 98 09/17/20 18:09 09/17/20 18:03 09/17/20 18:03 09/17/20 18:03 09/17/20 18:03 Intake & Output 09/16/20 09/17/20 09/18/20 06:59 06:59 06:59 Weight 117.934 kg General appearance: PRESENT: no acute distress, cooperative Head exam: PRESENT: atraumatic, normocephalic Eye exam: PRESENT: EOMI, PERRLA Mouth exam: PRESENT: moist Neck exam: PRESENT: full ROM Respiratory exam: PRESENT: clear to auscultation shen, symmetrical, unlabored Cardiovascular exam: PRESENT: RRR, +S1, +S2 GI/Abdominal exam: PRESENT: normal bowel sounds, soft. ABSENT: rebound, tenderness Extremities exam: PRESENT: full ROM Musculoskeletal exam: PRESENT: full ROM Neurological exam: PRESENT: alert, awake, oriented to person, oriented to place, oriented to time Psychiatric exam: PRESENT: agitated, anxious Skin exam: PRESENT: normal color Assessment and Plan - Diagnosis (1) Vertigo Is this a current diagnosis for this admission?: Yes Plan: Patient complaint of dizziness described as room spinning that started this morning - history of trigeminal neuralgia -No recent illness - no vertical or horizontal nystagmus - unable to do brando maneuver because the patient is very anxious and tearful - neuro exam non focal - dizziness might be secondary to her acute anxiety state - MRI to rule out cerebellar stroke - benadryl and reglan for nausea - ativan PRN for anxiety - psych consult in the morning (2) Acute anxiety Is this a current diagnosis for this admission?: Yes Plan: - as above - ativan PRN for anxiety - psych consult (3) Trigeminal neuralgia syndrome Is this a current diagnosis for this admission?: Yes Plan: - resume gabapentin and lyrica (4) Nausea & vomiting Qualifiers: Vomiting type: psychogenic vomiting Qualified Code(s): F50.89 - Other specified eating disorder Is this a current diagnosis for this admission?: Yes Plan: - karime - Time Time Spent with patient: 25-34 minutes Smoking Cessation Education: 3 to 10 minutes Medications reviewed and adjusted accordingly: Yes Anticipated Discharge Disposition: Home, Self Care Anticipated Discharge Timeframe: within 48 hours
[2020-09-17] MEDS ORDERED: LORAZEPAM INJ 2 MG/1 ML VIAL IV ONE (21:45)
[2020-09-17] MEDS ORDERED: PROMETHAZINE HCL INJ 25 MG/1 ML VIAL IV ONE (21:46)
[2020-09-17] MEDS ORDERED: DIPHENHYDRAMINE HCL 50 MG/ML VIAL IV PRN (22:38)
[2020-09-17] MEDS ORDERED: DEXTROSE 5%-LACTATED RINGERS 1,000 ML IV PRN (22:38)
[2020-09-17] MEDS ORDERED: ACETAMINOPHEN 325 MG TABLET PO PRN (22:39)
[2020-09-18] MEDS: LORAZEPAM INJ 2 MG/1 ML VIAL IV PRN ×2 (02:28→09:23)
[2020-09-18] MEDS: ONDANSETRON HCL INJ/PF 4 MG/2 ML SDV IV PRN ×2 (02:29→08:25)
[2020-09-18] MEDS: PREGABALIN 100 MG CAPSULE PO SCH ×2 (05:35→13:53)
[2020-09-18] MEDS: HEPARIN SOD (PORCINE) 5,000 UNIT/ML 1 ML VIAL SUBCUT SCH ×2 (05:35→13:54)
[2020-09-18] MEDS: GABAPENTIN 400 MG CAPSULE PO SCH ×2 (05:35→13:53)
[2020-09-18 10:17] LABS: ABSOLUTE EOSINOPHILS # (AUTO) 0.3 10^3/uL (0.0-0.6); ABSOLUTE LYMPHOCYTES (AUTO) 1.8 10^3/uL (0.5-4.7); ABSOLUTE MONOCYTES (AUTO) 0.6 10^3/uL (0.1-1.4); ABSOLUTE NEUT (AUTO) 6.5 10^3/uL (1.7-8.2); BASOPHILS % (AUTO) 0.5 % (0-2); EOSINOPHILS % (AUTO) 3.1 % (0-6); HEMATOCRIT 38.2 % (36.0-47.0); HEMOGLOBIN 12.8 g/dL (12.0-15.5); LYMPHOCYTES % (AUTO) 19.9 % (13-45); MEAN CORPUSCULAR HEMOGLOBIN 26.4 pg (27.0-33.4); MEAN CORPUSCULAR HGB CONC 33.6 g/dL (32.0-36.0); MEAN CORPUSCULAR VOLUME 79 fl (80-97); PLATELET COUNT 175 10^3/uL (150-450); RED BLOOD COUNT 4.86 10^6/uL (3.72-5.28); RED CELL DISTRIBUTION WIDTH 16.1 % (11.5-14.0); SEGMENTED NEUTROPHILS % (AUTO) 70.5 % (42-78); TOTAL CELLS COUNTED % (AUTO) 100 %; WHITE BLOOD COUNT 9.2 10^3/uL (4.0-10.5)
[2020-09-18 10:36] LABS: ALBUMIN 4.1 g/dL (3.5-5.0); ALKALINE PHOSPHATASE 33 U/L (38-126); ANION GAP 10 (5-19); ASPARTATE AMINO TRANSFERASE 16 U/L (14-36); BILIRUBIN,DIRECT 0.1 mg/dL (0.0-0.4); BILIRUBIN,TOTAL 0.5 mg/dL (0.2-1.3); BLOOD UREA NITROGEN 9 mg/dL (7-20); CALCIUM 9.7 mg/dL (8.4-10.2); CARBON DIOXIDE 24 mmol/L (22-30); CHLORIDE 107 mmol/L (98-107); GLUCOSE 81 mg/dL (75-110); POTASSIUM 4.2 mmol/L (3.6-5.0); TOTAL PROTEIN 7.1 g/dL (6.3-8.2)
[2020-09-18] MEDS ORDERED: MECLIZINE HCL 12.5 MG TABLET PO PRN (13:31)
[2020-09-18 13:52] VITALS: BP 125/75
--- NOTE | 2020-09-19 06:55 | Left Against Medical Advice ---
Against Medical Advice Admission Date/Time: 09/17/20 18:44 Primary Care Provider: Date of Patient Emigration: 09/18/20 - Diagnosis: (1) Vertigo Is this a current diagnosis for this admission?: Yes (2) Acute anxiety Is this a current diagnosis for this admission?: Yes (3) Trigeminal neuralgia syndrome Is this a current diagnosis for this admission?: Yes (4) Nausea & vomiting Is this a current diagnosis for this admission?: Yes - Summary: Summary: Please see Admission and Progress Notes as well. Patient opted to leave after being told that ativan was being stopped for her dizziness. KINSEY ECKERT is a 35 F, who LEFT AGAINST MEDICAL ADVICE. The Patient was admitted on 09/17/20 18:44.
[2020-09-19] MEDS ORDERED: FLUTICASONE NASAL SPRAY 50 MCG/SPRY 120 SPRAY/16 GM NASL SCH (10:00)
== END 2020-09-18 14:58 | disposition left against medical advice (07) ==
LOC: ER 17:58 → EH 18:44 → INTOOBSV 18:44 → 4S 22:49
PROVIDERS: ADMIT Internal Medicine; ATTEND Internal Medicine
DX: R42 Dizziness and giddiness (principal); F41.9 Anxiety disorder, unspecified; G50.0 Trigeminal neuralgia; F50.89 Other specified eating disorder; Z86.39 Personal history of other endocrine, nutritional and metabolic disease; R53.83 Other fatigue; H53.9 Unspecified visual disturbance; F17.210 Nicotine dependence, cigarettes, uncomplicated; Z79.899 Other long term (current) drug therapy
CPT/HCPCS: 99285; 36415; 85025; 80053; 99406; G0378 ×3; J1644; J1200; J3490; J2060 ×2; J2550; J2405; J7121

== ENCOUNTER 2020-12-03 16:31 | Emergency (ER) | payer MEDICAID ==
[2020-12-03 18:44] LABS: ABSOLUTE EOSINOPHILS # (AUTO) 0.3 10^3/uL (0.0-0.6); ABSOLUTE MONOCYTES (AUTO) 0.3 10^3/uL (0.1-1.4); ABSOLUTE NEUT (AUTO) 7.1 10^3/uL (1.7-8.2); BASOPHILS % (AUTO) 0.5 % (0-2); EOSINOPHILS % (AUTO) 3.2 % (0-6); HEMATOCRIT 41.7 % (36.0-47.0); HEMOGLOBIN 13.8 g/dL (12.0-15.5); LYMPHOCYTES % (AUTO) 20.8 % (13-45); MEAN CORPUSCULAR HEMOGLOBIN 26.2 pg (27.0-33.4); MEAN CORPUSCULAR HGB CONC 33.1 g/dL (32.0-36.0); MEAN CORPUSCULAR VOLUME 79 fl (80-97); MONOCYTES % (AUTO) 3.5 % (3-13); PLATELET COUNT 183 10^3/uL (150-450); RED BLOOD COUNT 5.27 10^6/uL (3.72-5.28); RED CELL DISTRIBUTION WIDTH 17.3 % (11.5-14.0); TOTAL CELLS COUNTED % (AUTO) 100 %; WHITE BLOOD COUNT 9.8 10^3/uL (4.0-10.5)
--- NOTE | 2020-12-03 18:52 | ER Document Report ---
ED Medical Screen (RME) - General Stated Complaint: ABDOMINAL PAIN / VAGINAL SPOTTING 11 WKS Time Seen by Provider: 12/03/20 18:04 Mode of Arrival: Ambulatory Information source: Patient Notes: Patient reports she is 11 weeks and has vaginal bleeding that started yesterday. Patient is a G6, P2. Patient has had 3 miscarriages. Patient reports that she also has a history of trigeminal neuralgia, she usually sees a neurologist in [place] however due to moving here they will no longer send in her prescriptions for gabapentin and lyrica. She states she has been out of her medications for 1 week and has severe pain on the right side of her face. I have greeted and performed a rapid initial assessment of this patient. A comprehensive ED assessment and evaluation of the patient, analysis of test results and completion of the medical decision making process will be conducted by additional ED providers. I have specifically instructed the patient or family members with the patient to immediately return to any nursing staff should anything change in the patient's condition or with their chief complaint. TRAVEL OUTSIDE OF THE [place] IN LAST 30 DAYS: No - Related Data Allergies/Adverse Reactions: ketorolac [From Toradol] Allergy (Verified 09/17/20 18:09) NSAIDS (Non-Steroidal Anti-Inflamma Adverse Reaction (Verified 09/17/20 18:09) Past Medical History - Past Medical History Cardiac Medical History: Denies: Hx Coronary Artery Disease, Hx Heart Attack, Hx Hypertension Pulmonary Medical History: Denies: Hx Asthma, Hx Bronchitis, Hx COPD, Hx Pneumonia Neurological Medical History: Denies: Hx Cerebrovascular Accident, Hx Seizures Musculoskeltal Medical History: Denies Hx Arthritis Psychiatric Medical History: Denies: Hx Depression Past Surgical History: Reports: Hx Section, Hx Gynecologic Surgery, Hx Orthopedic Surgery - right hand, Other - History of miscarriage - Immunizations Immunizations up to date: Yes Hx Diphtheria, Pertussis, Tetanus Vaccination: Yes Physical Exam - Vital signs Vitals: Temp Pulse Resp BP Pulse Ox 98.2 F 94 16 147/75 H 100 12/03/20 16:35 12/03/20 16:35 12/03/20 16:35 12/03/20 16:35 12/03/20 16:35 Course - Vital Signs Vital signs: Temp Pulse Resp BP Pulse Ox 98.2 F 94 16 147/75 H 100 12/03/20 16:35 12/03/20 16:35 12/03/20 16:35 12/03/20 16:35 12/03/20 16:35 - Laboratory Results Result Diagrams: 12/03/20 18:24 12/03/20 18:24
[2020-12-03 19:04] LABS: ALBUMIN 4.5 g/dL (3.5-5.0); ALKALINE PHOSPHATASE 39 U/L (38-126); ANION GAP 11 (5-19); ASPARTATE AMINO TRANSFERASE 16 U/L (14-36); BILIRUBIN,DIRECT 0.2 mg/dL (0.0-0.4); BILIRUBIN,TOTAL 0.4 mg/dL (0.2-1.3); BLOOD UREA NITROGEN 4 mg/dL (7-20); CALCIUM 10.1 mg/dL (8.4-10.2); CARBON DIOXIDE 24 mmol/L (22-30); CHLORIDE 105 mmol/L (98-107); GLUCOSE 83 mg/dL (75-110); POTASSIUM 3.9 mmol/L (3.6-5.0); TOTAL PROTEIN 7.4 g/dL (6.3-8.2)
--- NOTE | 2020-12-03 19:27 | RADIOLOGY REPORT (SQ) ---
EXAM DESCRIPTION: U/S OB TRANSVAGINAL W/O DOP IMAGES COMPLETED DATE/TIME: 12/03/2020 7:02 pm REASON FOR STUDY: 11 weeks preg, vag bleed COMPARISON: None. TECHNIQUE: Transvaginal static and realtime grayscale images acquired of the pelvis. Additional karena cted spectral and color Doppler images recorded. All images stored on PACs. bHCG: Not available. CLINICAL DATES: LMP 09/20/2020 10 weeks 4 days LIMITATIONS: None. FINDINGS: FETUS: Single Living intrauterine . ULTRASOUND EGA: 7 weeks 5 days ULTRASOUND ABRAHAN: 07/17/2021 EFW: Not applicable less than 20 weeks. CRL: 1.4 cm FHR: No heart motion is seen. SURVEY: No visualized anomalies. AMNIOTIC FLUID: Adequate amount. PLACENTA: Not yet developed due to early gestation. SUBCHORIONIC BLEED: Yes SIZE OF BLEED: 23 x 5 x 8 mm UTERUS: No masses. No anomalies. CERVICAL LENGTH: 3.9 cm. Closed. RIGHT ADNEXA: Normal ovary with normal vascular flow. No adnexal free fluid. No adnexal masses. LEFT ADNEXA: Normal ovary with normal vascular flow. No adnexal free fluid. No adnexal masses. FREE FLUID: None. OTHER: No other significant finding. IMPRESSION: There is an intrauterine gestation of 7 weeks 5 days. No heart motion is seen at this time. Concerning for demise. Follow-up as clinically indicated. TECHNICAL DOCUMENTATION: JOB ID: [id number] 2010 [employer]- All Rights Reserved Reading location - IP/workstation name: [email or web address]
[2020-12-03] MEDS ORDERED: PREGABALIN 100 MG CAPSULE PO ONE (21:08)
--- NOTE | 2020-12-03 21:09 | ER Document Report ---
ED General - General Chief Complaint: Vag Bleeding, +preg <12wks Stated Complaint: ABDOMINAL PAIN / VAGINAL SPOTTING 11 WKS Time Seen by Provider: 12/03/20 18:04 Primary Care Provider: [facility] [Provider Group] - Follow up tomorrow Mode of Arrival: Ambulatory TRAVEL OUTSIDE OF THE [place] IN LAST 30 DAYS: No - HPI Notes: Patient is a 35 y/o female who is 11 weeks and presents with vaginal bleeding for the past week. Patient states the bleeding began as a light spotting and became slightlt heavier with time. She states she only notices the blood when wiping. She report mild abdominal cramping but denies vaginal disch arge and vomiting. LMP 09/20/2020. P:2 A: 3 (spontaneous). Patient also has hx of trigeminal neuralgia which she currently takes gabapentin 800 mg 3 times daily and Lyrica 200 mg 3 times daily. Patient states she ran out of her gabapentin 4 days ago and does not have any refills on her presc ription. She has yet to establish care with a local neurologist due to being new to the area but she has appointment with [facility] on 12/10/20. She reports facial pain that is consistent with her typical traigeminal neuralgia pain. She denies chest pain, shortness of breath and fever. She is requesting a refill of gabapentin to get her through the week until her neurology appointmen t. She states she has enough Lyrica to get her through. - Related Data Allergies/Adverse Reactions: ketorolac [From Toradol] Allergy (Verified 09/17/20 18:09) NSAIDS (Non-Steroidal Anti-Inflamma Adverse Reaction (Verified 09/17/20 18:09) Past Medical History - General Information source: Patient - Social History Smoking Status: Never Smoker Frequency of alcohol use: None Family History: Reviewed & Not Pertinent - Past Medical History Cardiac Medical History: Denies: Hx Coronary Artery Disease, Hx Heart Attack, Hx Hypertension Pulmonary Medical History: Denies: Hx Asthma, Hx Bronchitis, Hx COPD, Hx Pneumonia Neurological Medical History: Denies: Hx Cerebrovascular Accident, Hx Seizures Musculoskeletal Medical History: Denies Hx Arthritis Psychiatric Medical History: Denies: Hx Depression Past Surgical History: Reports: Hx Section, Hx Gynecologic Surgery, Hx Orthopedic Surgery - right hand, Other - History of miscarriage - Immunizations Immunizations up to date: Yes Hx Diphtheria, Pertussis, Tetanus Vaccination: Yes Review of Systems - Review of Systems Constitutional: No symptoms reported EENT: No symptoms reported Cardiovascular: No symptoms reported Respiratory: No symptoms reported Gastrointestinal: See HPI Genitourinary: No symptoms reported Female Genitourinary: See HPI Musculoskeletal: No symptoms reported Skin: No symptoms reported Hematologic/Lymphatic: No symptoms reported Neurological/Psychological: See HPI Physical Exam - Vital signs Vitals: Temp Pulse Resp BP Pulse Ox 98.2 F 94 16 147/75 H 100 12/03/20 16:35 12/03/20 16:35 12/03/20 16:35 12/03/20 16:35 12/03/20 16:35 - Notes Notes: PHYSICAL EXAMINATION: VITALS: Vitals reviewed and within normal limits. GENERAL: Well-appearing, well-nourished and in no acute distress. HEAD: Atraumatic, normocephalic. EYES: Pupils equal, round, and reactive to light, extraocular movements intact, sclera anicteric, conjunctiva are normal. ENT: Nares patent. Moist mucous membranes. Oropharynx clear without exudates. NECK: Normal range of motion, supple without lymphadenopathy. LUNGS: Breath sounds clear to auscultation bilaterally and equal. No wheezes, rales, or rhonchi. HEART: Regular, rate, and rhythm without murmurs. ABDOMEN: Soft, nontender, normoactive bowel sounds. No guarding, no rebound. No masses appreciated. FEMALE GENITOURINARY: Normal external genitalia with no visible lesions. Cervix closed with blood visualized in vaginal vault. No cervical motion tenderness. (Chaperoned by Dejah Urban RN) EXTREMITIES: Normal range of motion, no pitting or edema. No cyanosis. NEUROLOGICAL: Facial pain bilaterally along the trigeminal nerve. No focal neurological deficits. Moves all extremities spontaneously and on command. PSYCH: Normal mood, normal affect. SKIN: Warm, Dry, normal turgor, no rashes or lesions noted. Course - Re-evaluation Re-evalutation: Patient is a 35 y/o female who is 11 weeks and presents with vaginal bleeding for the past week. She also presents for medication refill of gabapen tin which she takes for her trigeminal neuralgia. Vital signs are stable within normal limits. On exam, abdomen is soft and nontender. CBC shows a normal hemoglobin of 13.8. CMP is unremarkable within normal limits. Beta hCG quant is 13,631. Patient's blood type is B- and a dose of RhoGam was given here in the ED. Transvaginal US shows an intrauterine gestation of 7 weeks 5 days. No heart motion is seen at this time. Concerning for demise. 12/03/20 21:02 I I consulted the SHIELD OPERATOR on-call, Dr. Hernandez, and he recommends that the patient follow-up in office in the morning. He recommended no further therapy or treatment at this time. Patient informed of ultrasound results and need to follow-up with SHIELD OPERATOR in the morning. Patient demonstrates understanding. 12/03/20 21:59 Prescription of gabapentin given to get patient through until her neurology appointment on 12/10/2020. SHIELD OPERATOR referral given and patient understands to follow-up tomorrow morning. Return precautions and follow-up of instructions given. Patient will be discharged home. Patient understands and i s in agreement with the plan. 12/03/20 22:40 Just prior to discharge, patient began to experience heavier bleeding and developed more severe pain. She was brought back to her ED room. IV morphine and Zofran given to the patient which provided immediate relief. Pelvic exam performed which showed a small amount of blood in the vaginal vault. No concern for hemorrhage at this time. Based on normal vital signs, normal Hgb and normal pelvic exam, I feel patient is safe for discharge home. Patient will be discharged with Dosepaks of [place] and Zofran for pain and nausea relief. I advised patient to return to the emergency department if she began to bleed through more than 1 pad an hour. Patient understands and is in agreement with the plan. Patient will be discharged home at this time. - Vital Signs Vital signs: Temp Pulse Resp BP Pulse Ox 97.9 F 89 18 123/55 L 100 12/04/20 00:43 12/04/20 00:43 12/04/20 00:43 12/04/20 00:43 12/04/20 00:43 - Laboratory Results Result Diagrams: 12/03/20 18:24 12/03/20 18:24 Laboratory Results Interpreted: 12/03/20 12/03/20 18:24 18:24 MCV 79 L MCH 26.2 L RDW 17.3 H BUN 4 L Beta HCG, Quant 83570.00 H Critical Laboratory Results Reviewed: No Critical Results - Radiology Results Radiology Results Interpreted: Obstetrics Ultrasound 12/03/20 18:04 IMPRESSION: There is an intrauterine gestation of 7 weeks 5 days. No heart motion is seen at this time. Concerning for demise. Follow-up as clinically indicated. Critical Radiology Results Reviewed: No Critical Results Discharge - Discharge Clinical Impression: Absent heart tones, Vaginal bleeding before 22 weeks gestation, Trigeminal neuralgia Condition: Stable Disposition: HOME, SELF-CARE Instructions: Miscarriage Impending ([facility]), Trigeminal Neuralgia ([facility]) Additional Instructions: Follow up with [facility] tomorrow. Return if your symptoms worsen or if you pass out, develop fever, persistent vomiting, difficulty breathing, or severe vaginal bleeding. Prescriptions: Gabapentin [Neurontin 400 mg Capsule] 800 mg PO TID 7 Days #42 capsule Referrals: [facility] [Provider Group] - Follow up tomorrow
[2020-12-03] MEDS ORDERED: GABAPENTIN 400 MG CAPSULE PO ONE (21:10)
[2020-12-03] MEDS ORDERED: ACETAMINOPHEN 325 MG TABLET PO ONE (21:21)
[2020-12-03] MEDS ORDERED: ONDANSETRON HCL INJ/PF 4 MG/2 ML SDV IV ONE (23:23)
[2020-12-03] MEDS ORDERED: MORPHINE SULFATE 10 MG/ML INJ IV ONE (23:23)
[2020-12-04] MEDS ORDERED: HYDROCODONE/ACETAMINOPHEN 5-325 MG (6 TAB/ER DISP) PO PRN (00:07)
[2020-12-04] MEDS ORDERED: ONDANSETRON ODT 4 MG TAB (6 TAB/ER DISP) PO PRN (00:07)
[2020-12-04 00:46] VITALS: BP 123/55
== END 2020-12-03 21:59 | disposition home or self-care (01) ==
LOC: ER 16:31
DX: O20.9 Hemorrhage in early pregnancy, unspecified (principal); O99.351 Diseases of the nervous system complicating pregnancy, first trimester; G50.0 Trigeminal neuralgia; O26.891 Other specified pregnancy related conditions, first trimester; R10.9 Unspecified abdominal pain; Z79.899 Other long term (current) drug therapy; Z87.59 Personal history of other complications of pregnancy, childbirth and the puerperium; Z88.8 Allergy status to other drugs, medicaments and biological substances; Z3A.11 11 weeks gestation of pregnancy
CPT/HCPCS: 99285; 96374; 96375; 86900; 86901; 36415; 86850; 84702; 85025; 80053; 76817; J2790; J3490 ×3; J2270; J2405

== ENCOUNTER 2020-12-09 21:58 | Emergency (ER) | payer MEDICAID ==
--- NOTE | 2020-12-09 22:35 | ER Document Report ---
ED Medical Screen (RME) - General Chief Complaint: Vag Bleeding, +preg <12wks Stated Complaint: MISCARRIAGE/VAGINAL BLEEDING Time Seen by Provider: 12/09/20 22:25 Mode of Arrival: Ambulatory Information source: Patient TRAVEL OUTSIDE OF THE [place] IN LAST 30 DAYS: No - HPI Patient complains to provider of: Pelvic pain, bleeding, miscarriage Notes: 12/09/20 22:34 Patient here with complaints of having a miscarriage. The patient was seen 6 days ago. She was 11 weeks by date. G6, P2 with previous miscarriage and D&Cs. She had an ultrasound done at that time that showed demise with a fetus that had grown to 7 weeks. There is no heart beat. Patient has a B- blood type and was given RhoGam. She states that she passed a fetus at home and that she has an appointment for D&C coming up soon. She states that she thinks she may have passed another fetus today and is having increasing pain so she came in for evaluation. Exam: Nontoxic, patient appears uncomfortable. Lungs cardiac throughout. Mild tachycardia. Mild tenderness palpation of lower abdominal limited triage abdominal exam. An initial examination was made on the patient as part of the triage process, and it was determined a more comprehensive evaluation was necessary. Initial orders were placed and patient was transferred to another provider in the ED who assumed care and finished evaluation and plan. - Related Data Allergies/Adverse Reactions: ketorolac [From Toradol] Allergy (Verified 09/17/20 18:09) NSAIDS (Non-Steroidal Anti-Inflamma Adverse Reaction (Verified 09/17/20 18:09) Past Medical History - Social History Chew tobacco use (# tins/day): No Frequency of alcohol use: None Drug Abuse: None - Past Medical History Cardiac Medical History: Denies: Hx Coronary Artery Disease, Hx Heart Attack, Hx Hypertension Pulmonary Medical History: Denies: Hx Asthma, Hx Bronchitis, Hx COPD, Hx Pneumonia Neurological Medical History: Denies: Hx Cerebrovascular Accident, Hx Seizures Musculoskeltal Medical History: Denies Hx Arthritis Psychiatric Medical History: Denies: Hx Depression Past Surgical History: Reports: Hx Section, Hx Gynecologic Surgery, Hx Orthopedic Surgery - right hand, Other - History of miscarriage - Immunizations Immunizations up to date: Yes Hx Diphtheria, Pertussis, Tetanus Vaccination: Yes Physical Exam - Vital signs Vitals: Temp Pulse Resp BP Pulse Ox 97.6 F 104 H 18 150/83 H 100 12/09/20 22:02 12/09/20 22:02 12/09/20 22:02 12/09/20 22:02 12/09/20 22:02 Course - Vital Signs Vital signs: Temp Pulse Resp BP Pulse Ox 97.6 F 104 H 18 150/83 H 100 12/09/20 22:02 12/09/20 22:02 12/09/20 22:02 12/09/20 22:02 12/09/20 22:02
[2020-12-09] MEDS ORDERED: MORPHINE SULFATE 10 MG/ML INJ IV ONE (22:46)
[2020-12-09] MEDS ORDERED: ONDANSETRON HCL INJ/PF 4 MG/2 ML SDV IV ONE (22:46)
[2020-12-09 23:18] LABS: ABSOLUTE BASOPHILS # (AUTO) 0.1 10^3/uL (0.0-0.2); ABSOLUTE EOSINOPHILS # (AUTO) 0.4 10^3/uL (0.0-0.6); ABSOLUTE LYMPHOCYTES (AUTO) 2.6 10^3/uL (0.5-4.7); ABSOLUTE MONOCYTES (AUTO) 0.4 10^3/uL (0.1-1.4); ABSOLUTE NEUT (AUTO) 6.3 10^3/uL (1.7-8.2); BASOPHILS % (AUTO) 0.6 % (0-2); EOSINOPHILS % (AUTO) 4.3 % (0-6); HEMATOCRIT 38.9 % (36.0-47.0); HEMOGLOBIN 13.1 g/dL (12.0-15.5); LYMPHOCYTES % (AUTO) 26.7 % (13-45); MEAN CORPUSCULAR HEMOGLOBIN 26.5 pg (27.0-33.4); MEAN CORPUSCULAR HGB CONC 33.6 g/dL (32.0-36.0); MEAN CORPUSCULAR VOLUME 79 fl (80-97); MONOCYTES % (AUTO) 3.9 % (3-13); PLATELET COUNT 204 10^3/uL (150-450); RED BLOOD COUNT 4.94 10^6/uL (3.72-5.28); RED CELL DISTRIBUTION WIDTH 17.2 % (11.5-14.0); SEGMENTED NEUTROPHILS % (AUTO) 64.5 % (42-78); TOTAL CELLS COUNTED % (AUTO) 100 %; WHITE BLOOD COUNT 9.7 10^3/uL (4.0-10.5)
[2020-12-09 23:35] LABS: ALBUMIN 4.4 g/dL (3.5-5.0); ALKALINE PHOSPHATASE 58 U/L (38-126); ANION GAP 8 (5-19); ASPARTATE AMINO TRANSFERASE 19 U/L (14-36); BILIRUBIN,DIRECT 0.2 mg/dL (0.0-0.4); BILIRUBIN,TOTAL 0.3 mg/dL (0.2-1.3); BLOOD UREA NITROGEN 6 mg/dL (7-20); CALCIUM 9.3 mg/dL (8.4-10.2); CARBON DIOXIDE 23 mmol/L (22-30); CHLORIDE 107 mmol/L (98-107); GLUCOSE 87 mg/dL (75-110); POTASSIUM 4.1 mmol/L (3.6-5.0); TOTAL PROTEIN 7.3 g/dL (6.3-8.2)
--- NOTE | 2020-12-10 00:01 | RADIOLOGY REPORT (SQ) ---
CLINICAL HISTORY: Miscarriage, increased pain and bleeding COMPARISON: None. 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 Endometrial stripe measures 2 cm and is slightly vascular. There is no evidence of IUP. The ovaries are not visualized. IMPRESSION: No evidence of IUP. Thickened, slightly vascular endometrium.
[2020-12-10] MEDS ORDERED: ACETAMINOPHEN 325 MG TABLET PO ONE (00:24)
[2020-12-10] MEDS ORDERED: ONDANSETRON HCL INJ/PF 4 MG/2 ML SDV IV ONE (00:24)
--- NOTE | 2020-12-10 01:36 | ER Document Report ---
ED General - General Chief Complaint: Vag Bleeding, +preg <12wks Stated Complaint: MISCARRIAGE/VAGINAL BLEEDING Time Seen by Provider: 12/09/20 22:25 Mode of Arrival: Ambulatory TRAVEL OUTSIDE OF THE [place] IN LAST 30 DAYS: No - HPI Notes: Patient is a G6, P2 female who presents to the emergency department for evaluation. She was seen here last week and diagnosed with a missed . She has an appointment on the for a D&C. She comes in today stating that she has increased bleeding, increased pain "in my pelvis, and my bones, in my cervix" and heavy bleeding. She cannot tell me how many pads she has been through, just states that it is a lot. She denies any fevers or chills. She is had some nausea but no vomiting. She balks at the Vicodin that she was sent home with on her last visit, states that that offered absolutely no relief. She states the morphine she received earlier offered absolutely no relief. - Related Data Allergies/Adverse Reactions: ketorolac [From Toradol] Allergy (Verified 09/17/20 18:09) NSAIDS (Non-Steroidal Anti-Inflamma Adverse Reaction (Verified 09/17/20 18:09) Past Medical History - General Information source: Patient - Social History Smoking Status: Never Smoker Chew tobacco use (# tins/day): No Frequency of alcohol use: None Drug Abuse: None Family History: Reviewed & Not Pertinent - Past Medical History Cardiac Medical History: Denies: Hx Coronary Artery Disease, Hx Heart Attack, Hx Hypertension Pulmonary Medical History: Denies: Hx Asthma, Hx Bronchitis, Hx COPD, Hx Pneumonia Neurological Medical History: Reports: Other - Reports trigeminal neuralgia. Denies: Hx Cerebrovascular Accident, Hx Seizures Musculoskeletal Medical History: Denies Hx Arthritis Psychiatric Medical History: Denies: Hx Depression Past Surgical History: Reports: Hx Section, Hx Gynecologic Surgery, Hx Orthopedic Surgery - right hand, Other - History of miscarriage - Immunizations Immunizations up to date: Yes Hx Diphtheria, Pertussis, Tetanus Vaccination: Yes Review of Systems - Review of Systems Constitutional: No symptoms reported EENT: No symptoms reported Cardiovascular: No symptoms reported Respiratory: No symptoms reported Gastrointestinal: No symptoms reported Genitourinary: No symptoms reported Female Genitourinary: See HPI Musculoskeletal: No symptoms reported Skin: No symptoms reported Neurological/Psychological: No symptoms reported Physical Exam - Vital signs Vitals: Temp Pulse Resp BP Pulse Ox 97.6 F 104 H 18 150/83 H 100 12/09/20 22:02 12/09/20 22:02 12/09/20 22:02 12/09/20 22:02 12/09/20 22:02 - Notes Notes: This is a 35-year-old female who appears her stated age, in no acute distress. Vital signs reviewed, please refer to chart. Head is normocephalic, atraumatic. Pupils equal round, reactive to light. Neck is supple without meningismus. Heart is regular rate and rhythm. Lungs are clear to auscultation bilaterally. Abdomen is soft, diffusely tender without rebound or guarding, normoactive bowel sounds throughout. Extremities without cyanosis, clubbing. Posterior calves are nontender. Peripheral pulses are equal. Skin is warm and dry. Patient is awake, alert, neurological exam is nonfocal. Course - Re-evaluation Re-evalutation: 12/10/20 01:33 Patient presents emergency department for evaluation of vaginal bleeding. She states to me she believes she passed a twin . She states she is bl eeding heavily. I explained to the patient that her laboratory investigation showed a normal hemoglobin. It showed an unremarkable ultrasound. It showed a beta just under 200. There certainly is not any indication for a D&E at this time. She insists that she needs an emergent D&C and stronger pain medication. I explained to the patient that there is no indication for that. The patient became aggressive, tearful. She stated to me she was unhappy with the choice of Tylenol, states she needs something for her severe pain. I explained to the patient that I did not see any indication for narcotics and she is allergic to all NSAIDs. I told her I would be happy to go over all of her labs with her, these were printed out and discussed in detail. I did consult Dr. Lila Nguyen, on-call TRANSPORTATION PLANNING TECHNICIAN. She agrees that no further action is necessary at this time. Patient seems to have completed this AB spontaneously, and will likely not require any sort of the any. I certainly do not see any indication for any narcotic medications at this time. If she continues to have heavy bleeding she should return, but at this point her hemoglobin is actually normal. I will have her follow-up as an outpatient. - Vital Signs Vital signs: Temp Pulse Resp BP Pulse Ox 98.5 F 89 20 166/76 H 100 12/10/20 02:28 12/10/20 02:28 12/10/20 02:28 12/10/20 02:28 12/10/20 02:28 - Laboratory Results Result Diagrams: 12/09/20 23:09 12/09/20 23:09 Laboratory Results Interpreted: 12/09/20 12/09/20 23:09 23:09 MCV 79 L MCH 26.5 L RDW 17.2 H BUN 6 L Beta HCG, Quant 164.41 H Critical Laboratory Results Reviewed: No Critical Results - Radiology Results Radiology Results Interpreted: 12/10/20 05:27 Transvaginal US 12/09/20 22:33 IMPRESSION: No evidence of IUP. Thickened, slightly vascular endometrium. Critical Radiology Results Reviewed: No Critical Results Discharge - Discharge Clinical Impression: Complete Condition: Stable Disposition: HOME, SELF-CARE Instructions: Miscarriage ([facility]) Additional Instructions: Your blood counts are normal. Your beta has come down. Your uterus shows no signs of a retained . You have completed this miscarriage. Tylenol at home as needed for pain. Follow-up with TRANSPORTATION PLANNING TECHNICIAN. Return to the emergency department with worsening or new concerning symptoms of any sort.
[2020-12-10 02:36] VITALS: BP 166/76
== END 2020-12-10 02:28 | disposition home or self-care (01) ==
LOC: ER 21:58
DX: O03.9 Complete or unspecified spontaneous abortion without complication (principal); R10.2 Pelvic and perineal pain; R11.0 Nausea; Z88.8 Allergy status to other drugs, medicaments and biological substances
CPT/HCPCS: 96376; 99285; 96374; 96375; 36415; 84702; 85025; 80053; 76817; 93976; J3490; J2270; J2405 ×2

== ENCOUNTER 2020-12-17 08:21 | Day surgery (SDC) | payer MEDICAID ==
[2020-12-14 14:21] LABS: HEMATOCRIT 37.3 % (36.0-47.0); HEMOGLOBIN 12.3 g/dL (12.0-15.5); MEAN CORPUSCULAR HEMOGLOBIN 26.5 pg (27.0-33.4); MEAN CORPUSCULAR VOLUME 80 fl (80-97); PLATELET COUNT 222 10^3/uL (150-450); RED BLOOD COUNT 4.64 10^6/uL (3.72-5.28); RED CELL DISTRIBUTION WIDTH 17.2 % (11.5-14.0); WHITE BLOOD COUNT 9.6 10^3/uL (4.0-10.5)
[2020-12-14 14:30] LABS: APPEARANCE,URINE CLEAR; BILIRUBIN,URINE NEGATIVE (NEGATIVE); COLOR,URINE STRAW; GLUCOSE, URINE NEGATIVE (NEGATIVE); KETONES,URINE NEGATIVE (NEGATIVE); LEUKOCYTE ESTERASE,URINE NEGATIVE (NEGATIVE); NITRITE,URINE NEGATIVE (NEGATIVE); PROTEIN,URINE NEGATIVE (NEGATIVE); URINE SPECIFIC GRAVITY 1.005; UROBILINOGEN,URINE NEGATIVE mg/dL (<2.0)
[~2020-12-17 08:21] MED LIST: LACTATED RINGERS 1000 ML IV PRN; LIDOCAINE 0.5% INJ-PF (5 MG/ML) 50 ML SDV SUBCUT PRN
[2020-12-17] MEDS ORDERED: DIPHENHYDRAMINE HCL 50 MG/ML VIAL ONE (09:03)
[2020-12-17] MEDS ORDERED: DEXAMETHASONE SOD PHOSPHATE INJ 4 MG/1 ML VIAL ONE ×2 (09:03→11:23)
[2020-12-17] MEDS ORDERED: SUCCINYLCHOLINE CHLORIDE INJ 200 MG/10 ML VIAL ONE (09:03)
[2020-12-17] MEDS ORDERED: METOCLOPRAMIDE HCL INJ/PF 10 MG/2 ML SDV ONE (09:03)
[2020-12-17] MEDS ORDERED: ALBUTEROL SULFATE HFA (90 MCG/PUFF) 8 GM MDI IH ONE (09:03)
[2020-12-17] MEDS ORDERED: ROCURONIUM BROMIDE INJ 50 MG/5 ML VIAL IV ONE (09:03)
[2020-12-17] MEDS ORDERED: ONDANSETRON HCL INJ/PF 4 MG/2 ML SDV ONE ×2 (09:03→11:23)
[2020-12-17] MEDS ORDERED: FENTANYL CITRATE INJ/PF 100 MCG/2 ML AMPUL ONE (11:22)
[2020-12-17] MEDS ORDERED: EPHEDRINE SULFATE INJ 50 MG/1 ML AMPULE ONE (11:23)
[2020-12-17] MEDS ORDERED: PROPOFOL INJ 200 MG/20 ML VIAL IV ONE (11:23)
[2020-12-17] MEDS ORDERED: MIDAZOLAM 2 MG/2 ML INJ ONE ×2 (11:23→12:51)
[2020-12-17] MEDS ORDERED: IBUPROFEN 800 MG TABLET PO PRN (14:27)
[2020-12-17] MEDS ORDERED: OXYCODONE-ACETAMINOPHEN 5-325 MG TABLET PO PRN ×2 (14:27)
[2020-12-17] MEDS ORDERED: RINGERS SOLUTION,LACTATED 1,000 ML IV PRN (14:27)
[2020-12-17] MEDS ORDERED: KETOROLAC TROMETHAMINE INJ/PF 30 MG/1 ML SDV IV PRN (14:27)
--- NOTE | 2020-12-17 14:38 | Discharge Summary ---
Discharge Summary (SDC) - Discharge Final Diagnosis: Bleeding after miscarriage Date of Surgery: 12/17/20 Discharge Date: 12/17/20 Condition: Good Prescriptions: Oxycodone HCl/Acetaminophen [Percocet 5-325 mg Tablet] 1 tab PO Q4HP PRN #14 tablet PRN Reason: Ibuprofen [Motrin 800 mg Tablet] 800 mg PO Q8H PRN #30 tablet PRN Reason: Doxycycline Hyclate [Vibramycin 100 mg Tablet] 100 mg PO Q12 #7 tablet Referrals: SHERIDAN RADFORD NP [Primary Care Provider] - Discharge Diet: Regular Discharge Activity: Pelvic Rest, Slowly Increase Activity Home Care Assistance: None Needed Report the Following to Your Physician Immediately: Nausea, Fever over 101 Degrees
[2020-12-17] MEDS ORDERED: HYDROMORPHONE HCL INJ/PF 2 MG/ML AMPULE ONE (14:41)
--- NOTE | 2020-12-17 14:42 | Operative Report ---
Operative Report DATE OF SURGERY: 12/17/20 PREOPERATIVE DIAGNOSIS: Patient is requesting a D&C after her miscarriage becau se she is concerned about retained products. POSTOPERATIVE DIAGNOSIS: Same OPERATION: Suction D&C SURGEON: KATHY CORTES ANESTHESIA: GA TISSUE REMOVED OR ALTERED: Uterine contents COMPLICATIONS: None ESTIMATED BLOOD LOSS: 10 cc INTRAOPERATIVE FINDINGS: Uterine contents PROCEDURE: Patient was taken the OR and placed in supine position. General anesthesia was induced. She was placed in the dorsolithotomy position. Her perineum and vagina were prepared and draped in sterile fashion. Her bladder was emptied with a red rubber catheter. A weighted speculum was placed in the anterior lip cervix grasped with a tenaculum. The cervix was gently dilated sounded 8 cm. A size 8 suction curette was used to evacuate the uterine contents. Repeat sounding afterwards showed uterus to be 8 cm once again. All instruments were removed. She is placed back in supine position brought out of anesthesia. She is taken recovery in stable condition. She had did receive RhoGam earlier this month in the ER.
[2020-12-17] MEDS ORDERED: OXYCODONE-ACETAMINOPHEN 5-325 MG TABLET ONE (15:23)
[2020-12-17] MEDS ORDERED: PROMETHAZINE HCL INJ 25 MG/1 ML VIAL ONE (15:28)
[2020-12-17 16:28] VITALS: BP 153/73
[2020-12-17] MEDS ORDERED: DOXYCYCLINE HYCLATE 100 MG TABLET PO SCH (22:00)
== END 2020-12-17 16:30 | disposition home or self-care (01) ==
LOC: OROUT 08:21
PROVIDERS: ATTEND Obstetrics & Gynecology
DX: O02.1 Missed abortion (principal); N85.8 Other specified noninflammatory disorders of uterus; G50.0 Trigeminal neuralgia; F17.210 Nicotine dependence, cigarettes, uncomplicated; Z01.812 Encounter for preprocedural laboratory examination; Z20.822 Contact with and (suspected) exposure to COVID-19; Z79.899 Other long term (current) drug therapy
CPT/HCPCS: 36415; 85027; 87635; 81001; 88305 ×2; 59820; J2250; J3490 ×2; J1100; J1200; J3010; J2765; J1170; J2550; J0330; J2405; J2704; C9803; 1965